=== PATIENT | female | born 1965 | race Caucasian/White ===

== ENCOUNTER 2019-10-25 13:00 | Outpatient (RCR) | payer BC, SELFPAY | END 2019-11-14 23:59 | disposition home or self-care (01) | LOC: ANHDMC 13:00 | PROVIDERS: PCP Family Medicine; Visit Provider Family Medicine | DX: E11.9 Type 2 diabetes mellitus without complications (principal); Z71.89 Other specified counseling | CPT/HCPCS: G0108 ==

== ENCOUNTER 2020-03-20 13:44 | Outpatient (CLI) | payer BC, SELFPAY ==
--- NOTE | ~2020-03-20 | XR_ITS ---
EXAMINATION: XR chest 2V 03/20/2020 14:12 INDICATION: Pneumonia. History of COPD. PROCEDURE: 2 view chest COMPARISON: Comparison to multiple prior studies sequentially, with oldest reviewed study dated 07/12. FINDINGS: There is chronic lingular atelectasis/scarring. No acute focal pneumonia, edema. The cardio mediastinal silhouette is within normal limits. There are no pleural effusions. There is no pneumot horax suspected. IMPRESSION: 1: NO ACUTE CARDIOPULMONARY DISEASE. Reviewed, dictated and finalized at location A.
== END 2020-03-20 13:45 | disposition home or self-care (01) ==
PROVIDERS: PCP Family Medicine; Visit Provider Family Medicine
DX: J18.9 Pneumonia, unspecified organism (principal); F17.200 Nicotine dependence, unspecified, uncomplicated; R93.89 Abnormal findings on diagnostic imaging of other specified body structures
CPT/HCPCS: 71046

== ENCOUNTER 2020-07-10 14:32 | Inpatient (IN) | payer BC, SELFPAY ==
[2020-07-10] VITALS (22 sets, daily range): BP systolic 115–138; BP diastolic 65–86; PULSE 87–107; RESP 15–25; TEMP 36.4–37.2; O2SAT 87–96; BMI 32.8
--- NOTE | ~2020-07-10 | CT_ITS ---
EXAMINATION: CTA chest PE protocol DATE: 07/10/2020 19:14 INDICATION: Shortness of breath and hypoxia. TECHNIQUE: Computed tomography (CT) pulmonary angiogram of the chest was performed with 100 mL Omnipa que-350 intravenous contrast. Additional 3D reconstructions utilizing coronal maximum intensity proje ction (MIP) were performed. Automated exposure control and iterative reconstruction technique were em ployed. The dose-length product was 341.50 mGy-cm. COMPARISON: 08/05/2019 FINDINGS: Excellent contrast opacification of the pulmonary arteries. There is mild streak artifact from dense contrast in the superior vena cava and right atrium. Mild scattered respiratory motion artifact which does not significantly limit evaluation. No pulmonary embolism. Mild discoid atelectasis in the ling liz and left upper lobe. There is some mosaic attenuation with subtle regions of air trapping suggest ever of small airway disease. No pneumonia, pulmonary edema, pleural effusion or pneumothorax. Diffuse mild bronchial wall thickening which could be related to bronchitis or reactive airway disease. Hear t size is normal. Atherosclerotic coronary artery calcific a cyst. No pericardial effusion. Thoracic aorta is normal in caliber with no dissection. No pathologically enlarged thoracic lymphadenopathy. V isualized upper abdomen is unremarkable. Mild thoracic spondylosis. IMPRESSION: 1. No pulmonary embolism. 2. Diffuse mild bronchial wall thickening and subtle regions of air trapping. Correlate clinically fo r possible asthma/reactive airway disease. Reviewed, dictated and finalized at location A. IMPRESSION: 1. No pulmonary embolism. 2. Diffuse mild bronchial wall thickening and subtle regions of air trapping. C orrelate clinically for possible asthma/reactive airway disease.
--- NOTE | ~2020-07-10 | XR_ITS ---
XR chest 2V DATE: 07/10/2020 15:02 INDICATION: Cough. Weakness. TECHNIQUE: PA and lateral views COMPARISON: 03/20/2020 2 view chest 08/09/2019 2 view chest 08/05/2019 CT pulmonary scan FINDINGS: Normal heart size. There is chronic lingular infiltrate, atelectasis and/or scarring, with resulting irregular shaggy le ft cardiac margin, not significantly changed since 08/09/2019. The lungs are moderately hyperinflated. No new pulmonary infiltrate or consolidation, pleural effusio n or pulmonary vascular congestion or pneumothorax is detected. IMPRESSION: Chronic lingular infiltrate, atelectasis and/or scarring Bilateral hyperinflation suggesting COPD Resolution of right basilar infiltrate or atelectasis; otherwise no significant change since 08/09/20 19 Reviewed, dictated and finalized at location B. IMPRESSION: Chronic lingular infiltrate, atelectasis and/or scarring Bilateral hyperinflation suggesting COPD Resolution of right basilar infiltrate or atelectasis; otherwise no significant change since 08/09/2019
--- NOTE | 2020-07-10 14:38 | ECG_ITS ---
Measurements Intervals [place] Rate: 93 P: 66 NM: 134 QRS: 78 QRSD: 86 T: 61 QT: 365 QTc: 455 Interpretive Statements SINUS RHYTHM POSSIBLE LEFT ATRIAL ENLARGEMENT DELAYED PRECORDIAL R/S TRANSITION BORDERLINE ECG Electronically Signed On 07-10-2020 15:50:20 CDT by Sebastian Whitaker D.O.
[2020-07-10 15:03] LABS: Basophils Absolute Auto 0.1 K/mm3 (0.0-0.1); Basophils Percent Auto 0.5 % (0.2-1.2); Eosinophils Absolute Auto 0.1 K/mm3 (0-0.3); Eosinophils Percent Auto 0.5 % (0-4.4); Hematocrit 49.8 % (37.0-47.0); Hemoglobin 16.3 g/dL (12.0-15.0); Immature Granulocyte Absolute 0.06 K/mm3 (0.00-0.031); Immature Granulocyte Percent A 0.4 % (0-0.5); Lymphocytes Absolute Auto 2.64 K/mm3 (0.9-3.2); Lymphocytes Percent Auto 15.9 % (18.3-44.2); Mean Corpuscular HGB Conc 32.7 g/dl (32-36); Mean Corpuscular Hemoglobin 28.6 pg (26-34); Mean Corpuscular Volume 87.5 fl (80-100); Mean Platelet Volume 8.8 fl (7.4-10.4); Monocytes Absolute Auto 1.5 K/mm3 (0.1-0.6); Monocytes Percent Auto 9.2 % (2.6-8.5); Neutrophils Absolute Auto 12.2 K/mm3 (1.3-6.7); Neutrophils Percent Auto 73.5 % (45.5-73.1); Platelet Count Result 340 k/mm3 (150-375); Red Blood Count 5.69 M/mm3 (4.2-5.4); Red Cell Distribution Width 14.3 % (11.5-14.5); White Blood Count 16.6 K/mm3 (4.5-10.0)
[2020-07-10 15:12] LABS: Prothrombin Time 12.6 Seconds (11.1-14.7)
[2020-07-10 15:13] LABS: Partial Thromboplastin Time 27.3 SECONDS (22.3-36.8)
[2020-07-10 15:15] LABS: Anion Gap 14 mmol/L (8-16); Blood Urea Nitrogen 15 mg/dL (7-17); Calcium 9.6 mg/dL (8.4-10.2); Carbon Dioxide 21 mmol/L (22-30); Chloride 104 mmol/L (98-107); Estimated CRCL calculation 81 ml/min; Estimated Glomerular Filt Rate > 60; Glucose 88 mg/dL (65-105); Potassium 4.2 mmol/L (3.4-5.0); Sodium 139 mmol/L (137-145)
[2020-07-10] MEDS: ASPIRIN 81 MG CHEWABLE TABLET 324 MG PO (15:21)
[2020-07-10 15:26] LABS: Troponin I < 0.012 ng/mL (0.000-0.034)
--- NOTE | 2020-07-10 16:06 | ED.SOB ---
HPI - SOB/Dyspnea General Chief Complaint: Shortness of Breath/Dyspnea <APRIL Ruggiero Last Filed: 07/10/20 20:54> Stated Complaint: SOB <APRIL Ruggiero Last Filed: 07/10/20 20:54> Time Seen by Provider: 07/10/20 15:34 <APRIL Ruggiero Last Filed: 07/10/20 20:54> Source: patient <APRIL Ruggiero Last Filed: 07/10/20 20:54> Mode of arrival: ambulatory <APRIL Ruggiero Last Filed: 07/10/20 20:54> Limitations: no limitations <APRIL Ruggiero Filed: 07/10/20 20:54> History of Present Illness HPI Narrative: This is a 55 year old female that presents to the ER for shortness of breath x 3 days. Reports sore throat, congestion and cough. Reports history of COPD and that she has become more short of breath. Reports chest pain with coughing. Reports she was treated by her PCP earlier this week for thrush. Denies fever. <APRIL Ruggiero Last Filed: 07/10/20 20:54> Related Data Home Medications: Home Medications Medication Instructions Recorded Confirmed aspirin [Adult Aspirin Regimen] 81 mg PO DAILY 08/09/19 07/08/20 atorvastatin 20 mg PO DAILY 08/09/19 07/08/20 <APRIL Ruggiero Last Filed: 07/10/20 20:54> Allergies/Adverse Reactions: Allergies Allergy/AdvReac Type Severity Reaction Status Date / Time hydrocodone Allergy Mild unknown Verified 09/20/19 13:44 exenatide [From Bydureon] Allergy Unknown Verified 09/20/19 13:44 poison sia extract Allergy Rash Verified 09/20/19 13:44 <APRIL Ruggiero Last Filed: 07/10/20 20:54> Review of Systems Review of Systems: Narrative: CONSTITUTIONAL: Denies fever ENT: Reports rhinorrhea, congestion, sore throat CARDIOVASCULAR: Reports chest pain RESPIRATORY: Reports cough and dyspnea. <APRIL Ruggiero Filed: 07/10/20 20:54> All systems reviewed & are unremarkable except as noted in HPI and below <Yamel Borja PA-C - Last Filed: 07/10/20 20:54> [facility] Past Medical History Medical History: Medical History (Updated 07/10/20 @ 20:49 by Deana Méndez DO) CAP (community acquired pneumonia) 08/09/2019 Cigarette smoker Diverticulosis DVT of popliteal vein Eczema of lower leg bilateral feet Gastroesophageal reflux Hematuria Irritable bowel syndrome with mixed bowel habits Migraine, unspecified, not intractable, without status migrainosus Persistent asthma with undetermined severity Type 2 diabetes mellitus treated with insulin <Yamel Borja PA-C - Last Filed: 07/10/20 20:54> Surgical History Surgical History: Surgical History (Updated 07/10/20 @ 20:27 by Deana Méndez DO) Congenital cataract resection Ganglion cyst of dorsum of left wrist History of endometrial ablation (~2005) Hx of tonsillectomy <Yamel Borja PA-C - Last Filed: 07/10/20 20:54> Family History Family History: Family History (Updated 07/10/20 @ 20:36 by Deana Méndez DO) Grandparent Diabetes mellitus Hyperlipidemia Mother , of malignant hyperthermia as a side effect of anesthesia Diabetes mellitus CHF (congestive heart failure) Peripheral vascular disease Chronic cutaneous venous stasis ulcer Sibling Diabetes mellitus sister Peripheral artery disease brother Father , premature coronary artery disease Acute myocardial infarction Malignant neoplasm of prostate Hyperlipidemia Heart disease Pulmonary embolism Cerebrovascular accident <Yamel Borja PA-C - Last Filed: 07/10/20 20:54> Social History Social History: Social History (Updated 07/10/20 @ 20:37 by Deana Méndez DO) Social History: Primary care physician: Dr. Claudette Figueroa Smoking packs per day: 1 Smoking cigarettes per day: 20.0 Years smoked: 41 Smoking pack-years: 41.00 Smoking status: Current every day smoker Alcohol intake: current Gender identity (if verbali
[2020-07-10] MEDS: ALBUTEROL SULFATE (*SP) AEROSOL 1 PUFF 4 PUFF INHALATION ×3 (16:15→18:16)
[2020-07-10] MEDS: methylPREDNISolone SOD SUCC 125 MG VIAL IV PUSH (16:20)
[2020-07-10 16:32] LABS: Alveolar/Arterial O2 Gradient 55.9 mmHg; Base Excess ABG -5.9 mEq/l (+/-2.0); Carboxyhemoglobin 2.1 % THb (0-2.0); Fractional Inspired Oxygen 21 %; HCO3 ABG 17.8 mEq/l (22.0-26.0); Methemoglobin ABG 0.4 %THb (0-1.5); Oxygen Saturation ABG 89.3 % (95.0-100.0); Oxyhemoglobin 85.4 % THb (90.0-100.0); PCO2 ABG 31.1 mmHg (35.0-45.0); PO2 ABG 56.6 mmHg (80.0-100.0); Reduced Hemoglobin 12.1 %THb (0-5.0); Total Hemoglobin 16.7 g/dL (12.0-18.0); pH ABG 7.376 (7.350-7.450)
[2020-07-10 16:34] LABS: Device ROOM AIR; Modified Allen's Test Pass; Site Drawn RIGHT RADIAL
[2020-07-10 17:59] LABS: Troponin I < 0.012 ng/mL (0.000-0.034)
--- NOTE | 2020-07-10 19:44 | PC.NURSE ---
called kelli to transfer patient back to [facility]. [facility] eta 2015
--- NOTE | 2020-07-10 20:22 | PM.IMHP ---
H&P: HPI History of Present Illness Date/Time: 07/10/20 20:22 Chief complaint: shortness of breath and cough Narrative: Sol Rosas is a 55 year old female With a past medical history of tobacco abuse and asthma presented to the ER with shortness of breath and cough for 1 day. She reports that she was diagnosed with thrush about 3 days ago. She was having sore throat and white plaquing in her mouth. She reports that she still has a sore throat despite taking her clotrimazole tablets. She has had persistent decreased oral intake. She has been eating 1 meal a day. She did have 1 episode of loose stool earlier today. She denies being on any antibiotic therapy. She has a longstanding history of asthma and continues to smoke 1.5 packs of cigarettes per day. She reports that usually about this time a year she will have more allergy symptoms in in the up getting a bronchitis or pneumonia. Last year she was hospitalized for pneumonia. So when she noticed increased rhinorrhea and postnasal drip she began using her fluconazole inhaler again . She had also noticed increased wheezing over the last several days. For 5 days after starting her fluconazole inhaler is when she developed the thrush. The patient reported that she just has not been feeling very well and has been staying in bed. She has not been having any fevers or chills. She works at a [employer] where it several of her colleagues at had [employer] several months ago but no one has tested positive recently. She lives at home with her and her 3 grand children and 2 daughters, over frequently. Her 1 daughter is ripn-py-ohgo mother who home schools her daughter. Her other daughter works as a infusion pharmacist. As far she knows her daughter's in grand children have not been ill. The patient denies any loss of sense of taste or smell. She had been having some chest discomfort associated with coughing. She had 2 sets of cardiac enzymes in the ER which were negative. for cough is productive of clear to white sputum. Review of Systems Review of Systems: Narrative: 12 systems were reviewed with pertinent positives and negatives per HPI. Except as documented in the HPI, all other systems were reviewed and are negative. [facility] Past Medical History Medical History (Updated 07/10/20 @ 20:59 by Deana Méndez DO) CAP (community acquired pneumonia) 08/09/2019 Cigarette smoker Diverticulosis DVT of popliteal vein Eczema of lower leg bilateral feet Gastroesophageal reflux Hematuria Irritable bowel syndrome with mixed bowel habits Migraine, unspecified, not intractable, without status migrainosus Persistent asthma with undetermined severity Type 2 diabetes mellitus treated with insulin Hemoglobin A1c February 2020 6.8 Surgical History Surgical History (Updated 07/10/20 @ 20:27 by Deana Méndez DO) Congenital cataract resection Ganglion cyst of dorsum of left wrist History of endometrial ablation (~2005) Hx of tonsillectomy Family History Family History (Updated 07/10/20 @ 20:36 by Deana Méndez DO) Grandparent Diabetes mellitus Hyperlipidemia Mother , of malignant hyperthermia as a side effect of anesthesia Diabetes mellitus CHF (congestive heart failure) Peripheral vascular disease Chronic cutaneous venous stasis ulcer Sibling Diabetes mellitus sister Peripheral artery disease brother Father , premature coronary artery disease Acute myocardial infarction Malignant neoplasm of prostate Hyperlipidemia Heart disease Pulmonary embolism Cerebrovascular accident Social History Social History (Updated 07/10/20 @ 23:06 by Deana Méndez DO) Social History: Primary care physician: Dr. Claudette Figueroa Smoking packs per day: 1.5 Smoking cigarettes per day: 30.0 Years smoked: 41 Smoking pack-years: 61.50 Smoking status: Current every day smoker Tobacco type: cigarettes Second hand tobacco sm
[2020-07-10 21:35] LABS: Troponin I < 0.012 ng/mL (0.000-0.034)
--- NOTE | 2020-07-10 21:43 | ADMGEN ---
This patient, Sol Rosas, was admitted to [facility] Surg Room 328-01. Patient/family oriented to hospital policies and general routines including ID bracelet, bed and alarms, visiting hours, pain management, procedures, bathroom and other care routines, personal items, smoking policy, room service/diet, and visiting hours. Valuables list has been completed. Information on how to activate the Rapid Response Team has been discussed. Patient/Family are encouraged to report perceived risks to care and to ask questions if they do not understand what they are told or what they should do.
[2020-07-10] MEDS: methylPREDNISolone SOD SUCC 125 MG VIAL 80 MG IV PUSH (22:52)
[2020-07-10 23:52] LABS: Glucose Point of Care 343 (65-105)
[2020-07-11] VITALS (13 sets, daily range): BP systolic 108–136; BP diastolic 53–82; PULSE 80–121; RESP 18–20; TEMP 36.4–37.2; O2SAT 91–95
[2020-07-11] MEDS: INSULIN ASPART (*BKC) 100 UNITS/ML SUB-Q ×2 (00:31→18:47)
[2020-07-11] MEDS: SODIUM CHLORIDE 0.9% IV 1,000 ML 100 ML IV CONT ×2 (00:31→10:13)
[2020-07-11] MEDS: methylPREDNISolone SOD SUCC 125 MG VIAL 80 MG IV PUSH (06:11)
[2020-07-11 07:45] LABS: Hematocrit 50.8 % (37.0-47.0); Hemoglobin 16.2 g/dL (12.0-15.0); Mean Corpuscular HGB Conc 31.9 g/dl (32-36); Mean Corpuscular Hemoglobin 28.3 pg (26-34); Mean Corpuscular Volume 88.8 fl (80-100); Mean Platelet Volume 9.3 fl (7.4-10.4); Platelet Count Result 338 k/mm3 (150-375); Red Blood Count 5.72 M/mm3 (4.2-5.4); Red Cell Distribution Width 14.3 % (11.5-14.5); White Blood Count 11.2 K/mm3 (4.5-10.0)
[2020-07-11 08:23] LABS: Anion Gap 13 mmol/L (8-16); Blood Urea Nitrogen 20 mg/dL (7-17); Calcium 9.3 mg/dL (8.4-10.2); Carbon Dioxide 23 mmol/L (22-30); Chloride 104 mmol/L (98-107); Estimated CRCL calculation 82 ml/min; Estimated Glomerular Filt Rate > 60; Glucose 136 mg/dL (65-105); Potassium 4.7 mmol/L (3.4-5.0); Sodium 140 mmol/L (137-145)
[2020-07-11] MEDS: ALBUTEROL SULFATE (*SP) AEROSOL 1 PUFF 6 PUFF INHALATION ×3 (08:35→15:29)
[2020-07-11 08:56] LABS: Glucose Point of Care 157 (65-105)
[2020-07-11] MEDS: ASPIRIN 81 MG ENTERIC TABLET PO (10:08)
[2020-07-11] MEDS: metFORMIN HCL 500 MG TABLET 1000 MG PO ×2 (10:08→16:09)
[2020-07-11] MEDS: lisinopriL 2.5 MG TABLET PO (10:09)
[2020-07-11] MEDS: ENOXAPARIN 40 MG/0.4 ML SYRINGE SUB-Q (10:09)
[2020-07-11] MEDS: ATORVASTATIN 20 MG TABLET PO (10:09)
[2020-07-11] MEDS: INSULIN GLARGINE (*BKC) 100 UNITS/ML 10 UNITS SUB-Q (10:09)
[2020-07-11] MEDS: NYSTATIN 100,000 UNITS/ML SUSP 5 ML ORAL.SUSP PO ×4 (10:10→22:13)
[2020-07-11 12:19] LABS: Glucose Point of Care 199 (65-105)
[2020-07-11 12:19] LABS: SARS-CoV-2 RNA PCR Negative
--- NOTE | 2020-07-11 14:53 | PM.IMPN ---
Progress Note: A&P Assessment and Plan (1) Exacerbation of asthma: Qualifiers: Asthma severity: unspecified severity Asthma persistence: unspecified Qualified Code(s): J45.901 - Unspecified asthma with (acute) exacerbation Code(s): J45.901 - Unspecified asthma with (acute) exacerbation Status: Acute Assessment and Plan: With possible undiagnosed component of COPD based on imaging this stay. She feels better, but still significant wheezing on exam. COVID testing negative. Continue with scheduled albuterol and spiriva Will add scheduled neb treatments now that COVID testing is negative We discussed her following up with her PCP for possible PFT for further evaluation Will lower IV solu medrol to 60mg Q8 hr for now; consider further weaning in frequency tomorrow. Wean O2 as tolerated Monitor (2) Acute respiratory failure with hypoxia: Code(s): J96.01 - Acute respiratory failure with hypoxia Status: Acute Assessment and Plan: Likely secondary to above. on 5 L HFNC currently; satting mid s currently. Please see above a/p (3) Oral candidiasis: Code(s): B37.0 - Candidal stomatitis Status: Acute Assessment and Plan: Will do nystatin swish and swallow during stay Continue home treatment after discharge (4) Diabetes mellitus: Qualifiers: Diabetes mellitus type: type 2 Diabetes mellitus mcc insulin use: with long distance operator use Diabetes mellitus complication status: without complication Qualified Code(s): E11.9 - Type 2 diabetes mellitus without complications; Z79.4 - terminal block assembler (current) use of insulin Code(s): E11.9 - Type 2 diabetes mellitus without complications Status: Acute Assessment and Plan: BGL 100s today. Last A1c 6.8 in 02/2020 Accuchecks ACHS, hypoglycemia protocol, correctional insulin, diabetic diet Continue home medications if formulary (5) Hypertension: Code(s): I10 - Essential (primary) hypertension Status: Acute Assessment and Plan: No HTN listed on medical history but takes lisinopril at home. BP reasonable during stay continue home lisinopril Monitor (6) Mixed hyperlipidemia: Code(s): E78.2 - Mixed hyperlipidemia Status: Acute Assessment and Plan: Check LFTs continue home statin Subjective Date/time seen: 07/11/20 14:53 Interval history: Patient is a 55 yo F with history of asthma, tobacco abuse, and DMII who is seen in follow up for asthma exacerbation with possible COPD component. Patient states she feels better today, then when she first came in. Her SOB particularly with exertion has improved, but still significant. She states her family members have said she sounds a lot better as well. Has some chest discomfort with coughs. Produces white sputum with cough. Slight nausea without vomiting overnight which resolved spontaneously. No other complaints at the moment. Tolerating PO. Denies subjective f/c/s, cp/palpitations, current n/v/d/c, abd pain, changes in BMs, dysuria, hematuria, cloudy urine, calf pain/swelling. Review of Systems Review of Systems: All systems reviewed & are unremarkable except as noted in HPI and below Exam Narrative: Exam Narrative: General: Patient resting supine in bed in no acute distress. on 5L HFNC satting at 94% HEENT: Normocephalic, EOMI, oral mucosa moist. Cardiovascular: Rate and rhythm are regular. No notable murmur, rub, or gallop. Respiratory: Significant diffuse expiratory wheezing in all lung haney with occasional scattered inspiratory wheeze. Speaks in somewhat full sentences but takes occasional time to a breath. Non-labored breathing. Abdomen: Soft, non-tender, non-distended, hypoac
[2020-07-11] MEDS: methylPREDNISolone SOD SUCC 125 MG VIAL 60 MG IV PUSH ×2 (16:09→22:13)
[2020-07-11 18:46] LABS: Glucose Point of Care 241 (65-105)
[2020-07-11] MEDS: ALBUTEROL SULFATE NEB 2.5 MG/0.5 ML INH INHALATION (20:04)
[2020-07-11] MEDS: IPRATROPIUM BR 0.02% INH SOLN 0.5 MG/2.5 ML VIAL INHALATION (20:04)
[2020-07-12] VITALS (18 sets, daily range): BP systolic 99–113; BP diastolic 50–56; PULSE 73–100; RESP 18–20; TEMP 36.6; O2SAT 90–94
[2020-07-12 01:21] LABS: Glucose Point of Care 250 (65-105)
[2020-07-12] MEDS: ALBUTEROL SULFATE NEB 2.5 MG/0.5 ML INH INHALATION ×4 (02:56→19:37)
[2020-07-12] MEDS: IPRATROPIUM BR 0.02% INH SOLN 0.5 MG/2.5 ML VIAL INHALATION (02:56)
[2020-07-12] MEDS: methylPREDNISolone SOD SUCC 125 MG VIAL 60 MG IV PUSH ×2 (05:46→17:47)
[2020-07-12 06:33] LABS: Hematocrit 44.6 % (37.0-47.0); Hemoglobin 14.5 g/dL (12.0-15.0); Mean Corpuscular HGB Conc 32.5 g/dl (32-36); Mean Corpuscular Hemoglobin 28.3 pg (26-34); Mean Corpuscular Volume 87.1 fl (80-100); Platelet Count Result 366 k/mm3 (150-375); Red Blood Count 5.12 M/mm3 (4.2-5.4); Red Cell Distribution Width 14.1 % (11.5-14.5)
[2020-07-12 06:55] LABS: Alanine Aminotransferase 16 U/L (4-35); Albumin Level 4.2 g/dL (3.5-5.1); Alkaline Phosphatase 99 U/L (38-126); Anion Gap 10 mmol/L (8-16); Aspartate Amino Transferase 20 U/L (14-36); Bilirubin,Total 0.3 mg/dL (0.2-1.3); Blood Urea Nitrogen 24 mg/dL (7-17); Calcium 9.5 mg/dL (8.4-10.2); Carbon Dioxide 23 mmol/L (22-30); Chloride 105 mmol/L (98-107); Estimated CRCL calculation 73 ml/min; Estimated Glomerular Filt Rate > 60; Glucose 203 mg/dL (65-105); Magnesium 2.4 mg/dL (1.6-2.3); Potassium 4.8 mmol/L (3.4-5.0); Sodium 138 mmol/L (137-145)
[2020-07-12 08:54] LABS: Glucose Point of Care 159 (65-105)
[2020-07-12] MEDS: metFORMIN HCL 500 MG TABLET 1000 MG PO ×2 (08:54→17:49)
[2020-07-12] MEDS: ASPIRIN 81 MG ENTERIC TABLET PO (08:54)
[2020-07-12] MEDS: lisinopriL 2.5 MG TABLET PO (08:55)
[2020-07-12] MEDS: ENOXAPARIN 40 MG/0.4 ML SYRINGE SUB-Q (08:56)
[2020-07-12] MEDS: ATORVASTATIN 20 MG TABLET PO (08:59)
[2020-07-12] MEDS: NYSTATIN 100,000 UNITS/ML SUSP 5 ML ORAL.SUSP PO ×4 (09:00→20:56)
--- NOTE | 2020-07-12 09:09 | PM.IMPN ---
Progress Note: A&P Assessment and Plan (1) Exacerbation of asthma: Qualifiers: Asthma severity: unspecified severity Asthma persistence: unspecified Qualified Code(s): J45.901 - Unspecified asthma with (acute) exacerbation Code(s): J45.901 - Unspecified asthma with (acute) exacerbation Status: Acute Assessment and Plan: With possible undiagnosed component of COPD based on imaging this stay. Clinically has improved, but still wheezing on exam. Afebrile, soft BP but otherwise VSS. COVID testing negative. WBC increased to 22k overnight, but suspect this may be due to IV steroid use; infection seems to be less likely. PNA would be possible source of infection if patient becomes febrile/persistent leukocytosis; other sources including skin infection and UTI seem less likely given she is asymptomatic. Down to 3L O2 NC Continue with scheduled albuterol and spiriva Continue scheduled neb treatments Will lower IV solu medrol to 60mg Q12 hr for now; consider further weaning in frequency tomorrow. Wean O2 as tolerated Monitor; consider abx for possible developing PNA if WBC continues to be elevated. Also will consider UA for other sources of infection, although she is asymptomatic During stay, we discussed her following up with her PCP for possible PFT for further evaluation (2) Acute respiratory failure with hypoxia: Code(s): J96.01 - Acute respiratory failure with hypoxia Status: Acute Assessment and Plan: Likely secondary to above. on 3 L NC currently; satting mid 90s currently. Please see above a/p (3) Oral candidiasis: Code(s): B37.0 - Candidal stomatitis Status: Acute Assessment and Plan: Will do nystatin swish and swallow during stay Continue home treatment after discharge (4) Diabetes mellitus: Qualifiers: Diabetes mellitus type: type 2 Diabetes mellitus long distance operator insulin use: with long distance operator use Diabetes mellitus complication status: without complication Qualified Code(s): E11.9 - Type 2 diabetes mellitus without complications; Z79.4 - [facility] (current) use of insulin Code(s): E11.9 - Type 2 diabetes mellitus without complications Status: Acute Assessment and Plan: BGL 150-low 200s today. Last A1c 6.8 in 02/2020 Accuchecks ACHS, hypoglycemia protocol, correctional insulin, diabetic diet Continue home medications if formulary (5) Mixed hyperlipidemia: Code(s): E78.2 - Mixed hyperlipidemia Status: Acute Assessment and Plan: Check LFTs continue home statin (6) Migraine, unspecified, not intractable, without status migrainosus: Code(s): G43.909 - Migraine, unspecified, not intractable, without status migrainosus Status: Acute Assessment and Plan: No acute issues. No HTN listed on medical history but takes lisinopril at home. She states she takes this to protect my kidneys , which is what as listed in her EMR as well. Suspect this is taken for ppx for migraine headaches. BP soft his morning Hold home lisinopril this morning; resume when appropriate Monitor Subjective Date/time seen: 07/12/20 09:09 Interval history: Patient is a 55 yo F with history of asthma, tobacco abuse, and DMII who is seen in follow up for asthma exacerbation with possible COPD component. Patient states she feels much better today. States she was coughing white sputum up last night, but has since felt much better. SOB and AVILA has improved. Still has some chest discomfort with coughs but has improved as well. No other complaints at the moment. Tolerating PO. Denies subjective f/c/s, cp/palpitations, current n/v/d/c, abd pain, changes in BMs, dysuria, hematuria, cloudy urine, calf pain/swell
[2020-07-12] MEDS: INSULIN GLARGINE (*BKC) 100 UNITS/ML 10 UNITS SUB-Q (11:17)
[2020-07-12] MEDS: INSULIN ASPART (*BKC) 100 UNITS/ML SUB-Q (11:37)
[2020-07-12 11:49] LABS: Glucose Point of Care 281 (65-105)
[2020-07-12] MEDS: NICOTINE (*PBKC) 21 MG PATCH 1 PATCH TRANSDERM (15:37)
[2020-07-12 17:58] LABS: Glucose Point of Care 188 (65-105)
[2020-07-12 20:03] LABS: Glucose Point of Care 239 (65-105)
[2020-07-12 20:59] LABS: Glucose Point of Care 227 (65-105)
[2020-07-13] VITALS (16 sets, daily range): BP systolic 115–137; BP diastolic 61–73; PULSE 69–105; RESP 16–18; TEMP 36.6–36.7; O2SAT 90–94
[2020-07-13] MEDS: ALBUTEROL SULFATE NEB 2.5 MG/0.5 ML INH INHALATION ×4 (01:24→20:24)
[2020-07-13 06:16] LABS: Basophils Percent Auto 0.2 % (0.2-1.2); Hematocrit 43.4 % (37.0-47.0); Hemoglobin 14.3 g/dL (12.0-15.0); Immature Granulocyte Absolute 0.21 K/mm3 (0.00-0.031); Immature Granulocyte Percent A 1.1 % (0-0.5); Lymphocytes Absolute Auto 3.59 K/mm3 (0.9-3.2); Lymphocytes Percent Auto 18.1 % (18.3-44.2); Mean Corpuscular HGB Conc 32.9 g/dl (32-36); Mean Corpuscular Volume 84.9 fl (80-100); Monocytes Absolute Auto 1.4 K/mm3 (0.1-0.6); Monocytes Percent Auto 7.2 % (2.6-8.5); Neutrophils Absolute Auto 14.6 K/mm3 (1.3-6.7); Neutrophils Percent Auto 73.4 % (45.5-73.1); Platelet Count Result 389 k/mm3 (150-375); Red Blood Count 5.11 M/mm3 (4.2-5.4); Red Cell Distribution Width 13.9 % (11.5-14.5); White Blood Count 19.9 K/mm3 (4.5-10.0)
[2020-07-13 06:19] LABS: Anion Gap 9 mmol/L (8-16); Blood Urea Nitrogen 23 mg/dL (7-17); Calcium 9.2 mg/dL (8.4-10.2); Carbon Dioxide 26 mmol/L (22-30); Chloride 105 mmol/L (98-107); Estimated CRCL calculation 82 ml/min; Estimated Glomerular Filt Rate > 60; Glucose 150 mg/dL (65-105); Magnesium 2.3 mg/dL (1.6-2.3); Potassium 4.1 mmol/L (3.4-5.0); Sodium 140 mmol/L (137-145)
[2020-07-13] MEDS: methylPREDNISolone SOD SUCC 125 MG VIAL 60 MG IV PUSH (08:28)
[2020-07-13] MEDS: metFORMIN HCL 500 MG TABLET 1000 MG PO ×2 (08:30→17:15)
[2020-07-13] MEDS: ASPIRIN 81 MG ENTERIC TABLET PO (08:30)
[2020-07-13] MEDS: ATORVASTATIN 20 MG TABLET PO (08:31)
[2020-07-13] MEDS: NYSTATIN 100,000 UNITS/ML SUSP 5 ML ORAL.SUSP PO ×4 (08:31→20:36)
[2020-07-13] MEDS: ENOXAPARIN 40 MG/0.4 ML SYRINGE SUB-Q (08:31)
[2020-07-13] MEDS: INSULIN GLARGINE (*BKC) 100 UNITS/ML 10 UNITS SUB-Q (08:39)
[2020-07-13 08:50] LABS: Glucose Point of Care 107 (65-105)
--- NOTE | 2020-07-13 09:35 | PM.IMPN ---
Progress Note: A&P Assessment and Plan (1) Exacerbation of asthma: Qualifiers: Asthma severity: unspecified severity Asthma persistence: unspecified Qualified Code(s): J45.901 - Unspecified asthma with (acute) exacerbation Code(s): J45.901 - Unspecified asthma with (acute) exacerbation Status: Acute Assessment and Plan: With possible undiagnosed component of COPD based on imaging this stay. Clinically has improved, but still wheezing on exam. Afebrile, soft BP but otherwise VSS. COVID testing negative. WBC decreased to 19.9k overnight; suspect this may be due to IV steroid use; infection seems to be less likely. PNA would be possible source of infection if patient becomes febrile/persistent leukocytosis; other sources including skin infection and UTI seem less likely given she is asymptomatic. Down to RA today Continue with scheduled albuterol and spiriva Continue scheduled neb treatments Will lower frequency of IV solu medrol to 60mg Q24 hr; plan to discharge on steroid taper Wean O2 as tolerated Monitor; consider abx for possible developing PNA if WBC continues to be elevated. Also will consider UA for other sources of infection, although she is asymptomatic During stay, we discussed her following up with her PCP for possible PFT for further evaluation (2) Acute respiratory failure with hypoxia: Code(s): J96.01 - Acute respiratory failure with hypoxia Status: Acute Assessment and Plan: Likely secondary to above. on RA; satting mid currently. Please see above a/p (3) Oral candidiasis: Code(s): B37.0 - Candidal stomatitis Status: Acute Assessment and Plan: Will continue nystatin swish and swallow during stay Continue home treatment after discharge (4) Diabetes mellitus: Qualifiers: Diabetes mellitus type: type 2 Diabetes mellitus buttermaker helper insulin use: with longterm use Diabetes mellitus complication status: without complication Qualified Code(s): E11.9 - Type 2 diabetes mellitus without complications; Z79.4 - intermediate designer (current) use of insulin Code(s): E11.9 - Type 2 diabetes mellitus without complications Status: Acute Assessment and Plan: BGL 100-150s today. Last A1c 6.8 in 02/2020 Accuchecks ACHS, hypoglycemia protocol, correctional insulin, diabetic diet Continue home medications if formulary (5) Mixed hyperlipidemia: Code(s): E78.2 - Mixed hyperlipidemia Status: Acute Assessment and Plan: LFTs WNL continue home statin (6) Migraine, unspecified, not intractable, without status migrainosus: Code(s): G43.909 - Migraine, unspecified, not intractable, without status migrainosus Status: Acute Assessment and Plan: No acute issues. No HTN listed on medical history but takes lisinopril at home. She states she takes this to protect my kidneys , which is what as listed in her EMR as well. Suspect this is taken for ppx for migraine headaches. BP reasonable this morning Continue lisinopril Monitor Subjective Date/time seen: 07/13/20 09:35 Interval history: Patient is a 55 yo F with history of asthma, tobacco abuse, and DMII who is seen in follow up for asthma exacerbation with possible COPD component. Patient states she feels better again today; was weaned down to RA by herself last night and had adequate oxygen saturations and thus was kept on RA. SOB improving as well as AVILA. Still has productive nonbloody sputum. Notes streaks of blood when blowing her nose. No other complaints at the moment. Tolerating PO. Denies subjective f/c/s, cp/palpitations, current n/v/d/c, abd pain, changes in BMs, dysuria, hematuria, cloudy urine, calf pain/swelling. Rev
[2020-07-13 12:31] LABS: Glucose Point of Care 156 (65-105)
[2020-07-13 17:24] LABS: Glucose Point of Care 200 (65-105)
[2020-07-13 22:00] LABS: Glucose Point of Care 163 (65-105)
[2020-07-14 02:07] VITALS: PULSE 83; RESP 18
[2020-07-14] MEDS: ALBUTEROL SULFATE NEB 2.5 MG/0.5 ML INH INHALATION ×2 (02:07→08:55)
[2020-07-14 02:13] VITALS: PULSE 79; RESP 18
[2020-07-14 06:00] VITALS: BP 138/82; PULSE 105; RESP 20; TEMP 36.7; O2SAT 92
[2020-07-14 06:14] LABS: Basophils Absolute Auto 0.1 K/mm3 (0.0-0.1); Basophils Percent Auto 0.3 % (0.2-1.2); Eosinophils Percent Auto 0.2 % (0-4.4); Hematocrit 42.3 % (37.0-47.0); Hemoglobin 13.7 g/dL (12.0-15.0); Immature Granulocyte Absolute 0.18 K/mm3 (0.00-0.031); Lymphocytes Absolute Auto 6.27 K/mm3 (0.9-3.2); Lymphocytes Percent Auto 35.6 % (18.3-44.2); Mean Corpuscular HGB Conc 32.4 g/dl (32-36); Mean Corpuscular Hemoglobin 27.6 pg (26-34); Mean Corpuscular Volume 85.1 fl (80-100); Mean Platelet Volume 8.8 fl (7.4-10.4); Monocytes Absolute Auto 1.7 K/mm3 (0.1-0.6); Monocytes Percent Auto 9.5 % (2.6-8.5); Neutrophils Absolute Auto 9.4 K/mm3 (1.3-6.7); Neutrophils Percent Auto 53.4 % (45.5-73.1); Platelet Count Result 346 k/mm3 (150-375); Red Blood Count 4.97 M/mm3 (4.2-5.4); Red Cell Distribution Width 13.7 % (11.5-14.5); White Blood Count 17.6 K/mm3 (4.5-10.0)
[2020-07-14 06:38] LABS: Atypical Lymphocytes Present
[2020-07-14 06:41] LABS: Platelet Estimate Adequate (Adequate)
--- NOTE | 2020-07-14 08:18 | PM.DS ---
DS: Admitting Diagnosis Admitting Diagnosis Admitting Diagnosis: shortness of breath and cough DS: Discharge Diagnosis Discharge Diagnosis (1) Exacerbation of asthma: Qualifiers: Asthma persistence: unspecified Asthma severity: unspecified severity Qualified Code(s): J45.901 - Unspecified asthma with (acute) exacerbation Code(s): J45.901 - Unspecified asthma with (acute) exacerbation Status: Acute Assessment and Plan: With possible undiagnosed component of COPD based on imaging this stay. Clinically has improved; slight scattered wheezing on exam. Afebrile, VSS. COVID testing negative. WBC decreased to 17.6k overnight; suspect leukocytosis likely due to IV steroid use; infection seems to be less likely. PNA would be possible source of infection if patient becomes febrile/persistent leukocytosis; other sources including skin infection and UTI seem less likely given she is asymptomatic. Still on RA today Continue home medications Discharge on prednisone taper F/u with PCP in 1-2 weeks CBC on 07/17 to monitor WBC During stay, we discussed her following up with her PCP for possible PFT for further evaluation; she is to discuss with PCP (2) Acute respiratory failure with hypoxia: Code(s): J96.01 - Acute respiratory failure with hypoxia Status: Acute Assessment and Plan: Likely secondary to above. on RA; satting mid most recently. Please see above a/p (3) Oral candidiasis: Code(s): B37.0 - Candidal stomatitis Status: Acute Assessment and Plan: nystatin swish and swallow during stay Continue home treatment after discharge (4) Diabetes mellitus: Qualifiers: Diabetes mellitus complication status: without complication Diabetes mellitus termite exterminator helper insulin use: with termite exterminator helper use Diabetes mellitus type: type 2 Qualified Code(s): E11.9 - Type 2 diabetes mellitus without complications; Z79.4 - buttermaker helper (current) use of insulin Code(s): E11.9 - Type 2 diabetes mellitus without complications Status: Acute Assessment and Plan: BGL 100s today. Last A1c 6.8 in 02/2020 Accuchecks ACHS, hypoglycemia protocol, correctional insulin, diabetic diet during stay Continue home medications at discharge (5) Mixed hyperlipidemia: Code(s): E78.2 - Mixed hyperlipidemia Status: Acute Assessment and Plan: LFTs WNL continue home statin (6) Migraine, unspecified, not intractable, without status migrainosus: Code(s): G43.909 - Migraine, unspecified, not intractable, without status migrainosus Status: Acute Assessment and Plan: No acute issues. No HTN listed on medical history but takes lisinopril at home. She states she takes this to protect my kidneys , which is what as listed in her EMR as well. Possibly taking for ppx for migraine headaches vs protection kidney injury in setting of DMII. BP reasonable this morning Continue lisinopril F/u with PCP DS: Summary Hospital Course Reason for hospitalization: Asthma exacerbation with possible COPD component Hospital Course: Patient is a 55 yo F with history of tobacco abuse and asthma who presented to the ER from home on 07/10 with shortness of breath and cough for 1 day. While in the ED, patient was found to be hypoxic, requiring oxygen. CTA of the chest scan showed no PE but showed signs of diffuse mild bronchial wall thickening and subtle regions of air trapping. Patient was placed on IV steroids in the ED for treatment of possible asthma exacerbation. COVID testing was performed in the ED given her respiratory symptoms. Patient admitted under this setting. Please see H&P for further details. Presenting VS: Temp Pulse Resp BP Pulse Ox 9
[2020-07-14] MEDS: ENOXAPARIN 40 MG/0.4 ML SYRINGE SUB-Q (08:30)
[2020-07-14] MEDS: ASPIRIN 81 MG ENTERIC TABLET PO (08:34)
[2020-07-14] MEDS: lisinopriL 2.5 MG TABLET PO (08:34)
[2020-07-14] MEDS: NYSTATIN 100,000 UNITS/ML SUSP 5 ML ORAL.SUSP PO (08:34)
[2020-07-14] MEDS: methylPREDNISolone SOD SUCC 125 MG VIAL 60 MG IV PUSH (08:35)
[2020-07-14] MEDS: NICOTINE (*PBKC) 21 MG PATCH 1 PATCH TRANSDERM (08:35)
[2020-07-14] MEDS: ATORVASTATIN 20 MG TABLET PO (08:35)
[2020-07-14] MEDS: metFORMIN HCL 500 MG TABLET 1000 MG PO (08:35)
[2020-07-14 08:57] VITALS: PULSE 76; RESP 18; O2SAT 93
[2020-07-14 09:10] VITALS: PULSE 68; RESP 18
[2020-07-14 09:59] LABS: Glucose Point of Care 85 (65-105)
== END 2020-07-14 11:45 | disposition home or self-care (01) | DRG 202 ==
LOC: ANHED 20:43 → ANH3MEDSUR 20:45
PROVIDERS: Emergency Medicine; Physician Assistant; Admitting Provider Internal Medicine; Emergency Provider Emergency Medicine; PCP Family Medicine; Visit Provider Family Medicine
DX: J45.901 Unspecified asthma with (acute) exacerbation (principal); J96.01 Acute respiratory failure with hypoxia; B37.0 Candidal stomatitis; E11.9 Type 2 diabetes mellitus without complications; Z20.828 Contact with and (suspected) exposure to other viral communicable diseases; J44.9 Chronic obstructive pulmonary disease, unspecified; F17.210 Nicotine dependence, cigarettes, uncomplicated; E78.2 Mixed hyperlipidemia; K21.9 Gastro-esophageal reflux disease without esophagitis; G43.909 Migraine, unspecified, not intractable, without status migrainosus; Z23 Encounter for immunization; Z79.4 Long term (current) use of insulin; Z79.82 Long term (current) use of aspirin; Z86.718 Personal history of other venous thrombosis and embolism; Z87.720 Personal history of (corrected) congenital malformations of eye
CPT/HCPCS: 36415; 36600; 71046; 71275; 80048; 80053; 82375; 82805; 83050; 83735; 84484; 85025; 85027; 85610; 85730; 87635; 90471; 90653; 93005; 94640; 96361; 96374; 96376; 99285; A9270; C9803; G0008; G0378; J1650; J1815; J2930; J7030; Q9967; U0003

== ENCOUNTER 2020-07-17 07:36 | Outpatient (CLI) | payer BC, SELFPAY ==
[2020-07-17 08:45] LABS: Basophils Absolute Auto 0.1 K/mm3 (0.0-0.1); Basophils Percent Auto 0.4 % (0.2-1.2); Eosinophils Absolute Auto 0.1 K/mm3 (0-0.3); Eosinophils Percent Auto 0.4 % (0-4.4); Hematocrit 46.7 % (37.0-47.0); Hemoglobin 15.4 g/dL (12.0-15.0); Immature Granulocyte Absolute 0.48 K/mm3 (0.00-0.031); Immature Granulocyte Percent A 2.1 % (0-0.5); Lymphocytes Absolute Auto 7.21 K/mm3 (0.9-3.2); Lymphocytes Percent Auto 32.2 % (18.3-44.2); Mean Corpuscular Hemoglobin 28.1 pg (26-34); Mean Corpuscular Volume 85.1 fl (80-100); Mean Platelet Volume 8.9 fl (7.4-10.4); Monocytes Absolute Auto 1.7 K/mm3 (0.1-0.6); Monocytes Percent Auto 7.7 % (2.6-8.5); Neutrophils Absolute Auto 12.8 K/mm3 (1.3-6.7); Neutrophils Percent Auto 57.2 % (45.5-73.1); Platelet Count Result 469 k/mm3 (150-375); Red Blood Count 5.49 M/mm3 (4.2-5.4); Red Cell Distribution Width 13.9 % (11.5-14.5); White Blood Count 22.4 K/mm3 (4.5-10.0)
[2020-07-17 09:30] LABS: Atypical Lymphocytes Present; Burr Cells 1+ (NORMAL); Platelet Estimate Adequate (Adequate)
== END 2020-07-17 07:37 | disposition home or self-care (01) ==
LOC: ANHLAB 07:38
PROVIDERS: PCP Family Medicine; Visit Provider Physician Assistant
DX: D72.829 Elevated white blood cell count, unspecified (principal); J45.901 Unspecified asthma with (acute) exacerbation
CPT/HCPCS: 36415; 85025

== ENCOUNTER 2020-09-17 09:31 | Outpatient (CLI) | payer BC, SELFPAY ==
--- NOTE | 2020-09-26 11:59 | WPDPFTINT ---
PFT Interpretation PFT Interpretation: This PFT met all criteria for ATS standards and reproducibility FEV/FVC post bronchodilator 59% FEV1 69% or 1.62 liters FVC 87% or 2.77 liters TLC 107% RV 150% RV/TLC 51% DLCO 72% when adjusted for alveolar volume but not adjusted for hemoglobin Flow volume loops showed significant expiratory coving Impression: Moderate airflow obstruction with air trapping and mildly decreased diffusion capacity. This pattern is suggestive of COPD. Clinical correlation is advised.
== END 2020-09-17 09:32 | disposition home or self-care (01) ==
PROVIDERS: PCP Family Medicine; Visit Provider Family Medicine
DX: J96.01 Acute respiratory failure with hypoxia (principal); J45.901 Unspecified asthma with (acute) exacerbation
CPT/HCPCS: 94060; 94726; 94729

== ENCOUNTER 2023-10-13 09:27 | Outpatient (CLI) | payer BC, SELFPAY ==
--- NOTE | ~2023-10-13 | CT_ITS ---
CT Scan of the Chest without Contrast: Clinical Indication: Lung cancer screening, personal history of nicotine dependence Technique: Contiguous sections were acquired throughout the chest without intravenous contrast. Dose reduction technique was used on this scan by utilizing automated exposure control and iterative recon struction technique. The dose-length product (DLP) was 109.65 mGy-cm. COMPARISON: 07/10/2020 Findings: There is no evidence of any significant mediastinal, hilar or axillary lymphadenopathy. Coronary isabel ry calcification are present. There is no evidence of pleural or pericardial effusion. No pulmonary nodule identified. Extremely subtle mosaic attenuation pattern of the lungs again noted. Images through the upper abdomen reveal no abnormalities. Impression: Lung RADS 1: Negative. 12 month follow-up screening CT advised. Reviewed, dictated and finalized at location . 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 12 month follow-up screening CT advised.
== END 2023-10-13 09:28 | disposition home or self-care (01) ==
PROVIDERS: PCP Family Medicine; Visit Provider Family Medicine
DX: Z12.2 Encounter for screening for malignant neoplasm of respiratory organs (principal); Z87.891 Personal history of nicotine dependence
CPT/HCPCS: 71271

== ENCOUNTER 2023-11-16 00:11 | Day surgery (SDC) | payer BC, SELFPAY ==
[2023-10-24 09:24] VITALS: BMI 31.0
--- NOTE | 2023-11-14 11:38 | SUR.PREOP ---
Patient called regarding upcoming procedure. Reviewed preop instructions, appointment times, and procedure prep.
[2023-11-16 09:38] VITALS: BP 109/66; PULSE 87; RESP 20; TEMP 36.2; O2SAT 95
[2023-11-16] MEDS: LACTATED RINGERS 1,000 ML 150 ML IV CONT (09:56)
[2023-11-16 09:58] LABS: Glucose Point of Care 143 mg/dl (65-105)
--- NOTE | 2023-11-16 10:19 | PM.HPGS ---
History of Present Illness History of Present Illness Consent: Risks, benefits, and alternatives have been discussed and questions answered. Patient agrees to proceed with procedure. Chief complaint: neoplasm screening Narrative: Sol Rosas is a 58 year old female here for screening colonoscopy, last one 2014 Review of Systems Constitutional: Constitutional: Denies headache(s) and Denies weakness Eyes: Eyes: Denies blurry vision ENT: Reports Normal hearing present, Denies headache(s) and Denies neck pain Cardiovascular: Cardiovascular: Denies chest pain and Denies dyspnea Respiratory: Respiratory: Denies dyspnea Gastrointestinal: Gastrointestinal: Reports no additional gastrointestinal complaints Genitourinary: Genitourinary: Denies dysuria Musculoskeletal: Musculoskeletal: Denies neck pain Integumentary/Breasts: Skin/Breast: Denies dry skin Neurologic: Reports Normal hearing present, Denies headache(s) and Denies weakness Psychiatric: Psychiatric: Denies anxiety Endocrine: Endocrine: Denies change in body appearance Hematologic/Lymphatic: Hematologic/Lymphatic: Denies easy bleeding Allergic/Immunologic: Allergic/Immunologic: Denies urticaria PMFSH Past Medical History Medical History (Updated 11/16/23 @ 10:20 by Tyson Live MD) Acute respiratory failure with hypoxia CAP (community acquired pneumonia) 08/09/2019 Cigarette smoker Colon cancer screening Diabetes mellitus Diverticulosis DVT of popliteal vein Eczema of lower leg bilateral feet Gastroesophageal reflux Hematuria Irritable bowel syndrome with mixed bowel habits Migraine, unspecified, not intractable, without status migrainosus Oral candidiasis Type 2 diabetes mellitus treated with insulin Hemoglobin A1c February 2020 6.8 Surgical History Surgical History Congenital cataract resection Ganglion cyst of dorsum of left wrist History of endometrial ablation (~2005) Hx of tonsillectomy Family History Family History Grandparent Diabetes mellitus Hyperlipidemia Mother , of malignant hyperthermia as a side effect of anesthesia Diabetes mellitus CHF (congestive heart failure) Peripheral vascular disease Chronic cutaneous venous stasis ulcer Sibling Diabetes mellitus sister Peripheral artery disease brother Father , premature coronary artery disease Acute myocardial infarction Malignant neoplasm of prostate Hyperlipidemia Heart disease Pulmonary embolism Cerebrovascular accident Social History Social History Social History: Primary care physician: Dr. Claudette Figueroa Smoking packs per day: 1.5 Smoking cigarettes per day: 30.0 Years smoked: 41 Smoking pack-years: 61.50 Smoking status: Current every day smoker Tobacco type: cigarettes Second hand tobacco smoke exposure: Yes Alcohol intake: current Drinks per week: 3 Alcohol use details: She drinks between 2-3 alcoholic beverages a week. Substance use: never Substance use type: does not use Living arrangements: with family Additional living arrangements comments: She lives in [place] with her of 37 years. She has 2 adult children. She has 3 grand children. 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 Gender identity (if verbalized by the patient): Female Spiritual care concerns: No Meds Home Medications and Allergies Home Medications Medication Instructions Recorded Confirmed Type aspirin 81 mg tablet,delayed 81 mg PO DAILY 08/09/19 10/24/23 History release (Adult Aspirin Regimen) pen needle, diabetic 32 gauge x #100 ea 02/19/20 10/24/23 Rx 12/23 (CareFine Pen Needle) pen needle, diabetic 32 gauge x See Rx Instructions .Route
--- NOTE | 2023-11-16 10:21 | WPDANESEPPF ---
Anes - Initial Pre Proc Eval Procedure: Operation Date: 11/16/23 11:00 Proposed Procedures p Screening Colonoscopy - Tyson Live MD Date/Time: 11/16/23 10:21 Surgeon: Tyson Live MD Pre Op Diagnosis: neoplasm screening Patient Data Age: 58 Gender: F Height: 1.63 m Weight: 78.8 kg Last Vital Signs Temp 97.2 F L 11/16/23 09:38 Pulse 87 11/16/23 09:38 Resp 20 11/16/23 09:38 BP 109/66 11/16/23 09:38 Pulse Ox 95 11/16/23 09:38 O2 Del Method Room Air 11/16/23 09:38 Allergies Allergy/AdvReac Type Severity Reaction Status Date / Time hydrocodone Allergy Mild unknown Verified 11/16/23 09:37 exenatide [From Bydureon] Allergy Unknown Verified 11/16/23 09:37 poison sia extract Allergy Rash Verified 11/16/23 09:37 Home Medications Medication Instructions Recorded Confirmed Type aspirin 81 mg tablet,delayed 81 mg PO DAILY 08/09/19 10/24/23 History release (Adult Aspirin Regimen) pen needle, diabetic 32 gauge x #100 ea 02/19/20 10/24/23 Rx 3/16 (CareFine Pen Needle) pen needle, diabetic 32 gauge x See Rx Instructions .Route 07/27/22 10/24/23 Rx 5/32 (BD Ultra-Fine Rufina Pen .COMPLEX #90 ea Needle) insulin degludec 100 unit/mL (3 18 unit (0.18 mL) .Route Q24H #15 12/27/22 10/24/23 Rx mL) subcutaneous pen (Tresiba mL FlexTouch U-100 insulin) albuterol sulfate 90 mcg/actuation See Rx Instructions .Route 02/03/23 10/24/23 Rx aerosol inhaler .COMPLEX #17 grams blood-glucose meter,continuous #1 ea 02/03/23 10/24/23 Rx (Dexcom G6 Historical Site Guide) blood-glucose sensor (Dexcom G6 #9 ea 02/03/23 10/24/23 Rx Sensor device) fluticasone fur. 100 mcg-umeclid 1 inh inhalation DAILY #84 ea 05/09/23 10/24/23 Rx 62.5 mcg-vilant 25 mcg inhalat.powder (Trelegy Ellipta) lisinopril 2.5 mg tablet See Rx Instructions .Route 08/15/23 10/24/23 Rx .COMPLEX #90 tabs venlafaxine 37.5 mg See Rx Instructions .Route 08/15/23 10/24/23 Rx capsule,extended release 24 hr .COMPLEX #90 caps empagliflozin 25 mg tablet See Rx Instructions .Route 10/07/23 10/24/23 Rx (Jardiance) .COMPLEX #90 tabs amoxicillin 875 mg-potassium 1 tablet PO BID #20 tabs 10/18/23 10/24/23 Rx clavulanate 125 mg tablet blood-glucose transmitter (Dexcom #1 ea 10/18/23 10/24/23 Rx G6 Transmitter device) metformin 500 mg tablet,extended 1,000 mg PO BID #360 tabs 10/18/23 10/24/23 Rx release 24hr (osmotic) atorvastatin 40 mg tablet See Rx Instructions .Route 10/25/23 Rx .COMPLEX #90 tabs Laboratory Tests 11/16/23 09:49 POC Capillary Glucose 143 H mg/dl (65-105) Patient hx anesthesia problems: none Family hx anesthesia problems: none Results Review: All pre-operative results and documents have been reviewed as part of the pre-operative evaluation. [facility] Past Medical History Medical History (Updated 11/16/23 @ 10:20 by Tyson Live MD) Acute respiratory failure with hypoxia CAP (community acquired pneumonia) 08/09/2019 Cigarette smoker Colon cancer screening Diabetes mellitus Diverticulosis DVT of popliteal vein Eczema of lower leg bilateral feet Gastroesophageal reflux Hematuria Irritable bowel syndrome with mixed bowel habits Migraine, unspecified, not intractable, without status migrainosus Oral candidiasis Type 2 diabetes mellitus treated with insulin Hemoglobin A1c February 2020 6.8 Surgical History Surgical History Congenital cataract resection Ganglion cyst of dorsum of left wrist History of endometrial ablation (~2005) Hx of tonsillectomy Family History Family History Grandparent Diabetes mellitus Hyperlipidemia Mother , of malignant hyperthermia as a side effect of anesthesia Diabetes mellitus CHF (congestive heart failure) Peripheral vascular disease Chronic cutaneous venous st
[2023-11-16 10:47] VITALS: BP 145/88; PULSE 97; RESP 20; O2SAT 97
[2023-11-16 10:57] VITALS: BP 100/72; PULSE 96; RESP 20; O2SAT 94
[2023-11-16 11:07] VITALS: BP 108/66; PULSE 87; RESP 25; O2SAT 95
== END 2023-11-16 11:30 | disposition home or self-care (01) ==
PROVIDERS: PCP Family Medicine; Visit Provider Internal Medicine Gastroenterology
PROC: 0DJD8ZZ Inspection of Lower Intestinal Tract, Via Natural or Artificial Opening Endoscopic (ICD-10-PCS; CPT 45378; principal; 2023-11-16 11:00)
DX: Z12.11 Encounter for screening for malignant neoplasm of colon (principal); K64.8 Other hemorrhoids; K57.30 Diverticulosis of large intestine without perforation or abscess without bleeding; E11.9 Type 2 diabetes mellitus without complications; K21.9 Gastro-esophageal reflux disease without esophagitis; K58.2 Mixed irritable bowel syndrome; F17.210 Nicotine dependence, cigarettes, uncomplicated; J96.01 Acute respiratory failure with hypoxia; Z79.4 Long term (current) use of insulin; Z79.82 Long term (current) use of aspirin; Z79.85 Long-term (current) use of injectable non-insulin antidiabetic drugs; Z79.51 Long term (current) use of inhaled steroids; Z79.84 Long term (current) use of oral hypoglycemic drugs; Z98.890 Other specified postprocedural states; Z86.718 Personal history of other venous thrombosis and embolism; Z82.49 Family history of ischemic heart disease and other diseases of the circulatory system; Z80.42 Family history of malignant neoplasm of prostate
CPT/HCPCS: 45378; 82948; J2704; J7120

== ENCOUNTER 2024-02-17 07:07 | Outpatient (CLI) | payer BC, SELFPAY ==
--- NOTE | ~2024-02-17 | MM_ITS ---
EXAMINATION: MM screening maria l BI w shaun HISTORY: Screening mammogram TECHNIQUE: Craniocaudal and mediolateral oblique 3-D tomosynthesis images were obtained and synthetic 2-D images were generated. CAD analysis was submitted and interpreted. COMPARISON: January 11, 2015 bilateral screening mammogram BREAST PARENCHYMAL COMPOSITION: There are scattered areas of fibroglandular density. FINDINGS: There is no evidence of suspicious mass, calcification, or architectural distortion to sugg est malignancy in either breast. There has been no suspicious interval change. IMPRESSION: 1. No mammographic evidence of malignancy. 2. Recommend routine screening mammography in one year. BI-RADS Category 1: Negative Reviewed, dictated and finalized at location B.
== END 2024-02-17 07:08 | disposition home or self-care (01) ==
LOC: ANHIMG 07:10
PROVIDERS: PCP Family Medicine; Visit Provider Family Medicine
DX: Z12.31 Encounter for screening mammogram for malignant neoplasm of breast (principal)
CPT/HCPCS: 77063; 77067

== ENCOUNTER 2024-03-06 12:42 | Outpatient (CLI) | payer BC, SELFPAY ==
[2024-03-06 13:41] LABS: Anion Gap 7 mmol/L (4-12); Blood Urea Nitrogen 15 mg/dL (7-17); Calcium 9.6 mg/dL (8.4-10.2); Carbon Dioxide 25 mmol/L (22-30); Chloride 104 mmol/L (98-107); Estimated Glomerular Filt Rate > 60; Glucose 129 mg/dL (65-110); Potassium 4.2 mmol/L (3.4-5.0); Sodium 136 mmol/L (137-145)
== END 2024-03-06 12:43 | disposition home or self-care (01) ==
LOC: ANHSURGERY 12:47
PROVIDERS: Anesthesiology; PCP Family Medicine; Visit Provider Urology
DX: Z01.818 Encounter for other preprocedural examination (principal); E11.65 Type 2 diabetes mellitus with hyperglycemia
CPT/HCPCS: 36415; 80048

== ENCOUNTER 2024-03-09 01:08 | Day surgery (SDC) | payer BC, SELFPAY ==
[2024-02-28 13:34] VITALS: BMI 30.2
--- NOTE | 2024-02-28 13:36 | PC.NURSE ---
Report to the Outpatient Waiting Room, entrance under the green pavilion located off [address], at time _0615_ on date _[id number]_. Planned Procedure Time: _0815_. Time changes happen often and if your time is changed the preop area will call you the afternoon before. - You and your visitor will be asked to self-screen and do not enter if you have any COVID symptoms. - A mask is optional within the hospital at this time. Patients may have clear liquids (water, carbonated beverages, clear teas, apple juice) until 3 hours prior to surgery with a maximum of 20 ounces. - No food from midnight until time of surgery Take the following medications with a SIP of water the morning of surgery: __Venlafaxine DO NOT STOP ANY OF YOUR OTHER PRESCRIPTION MEDICATIONS PRIOR TO SURGERY ?EXCEPT THE FOLLOWING Medications to discontinue per physician Aspirin Date to take last sjcq__[id number] Please no make-up, nail italian, hairspray, perfume, deodorant, or body powder the day of surgery. No jewelry (including any body piercings) or valuables the day of surgery, leave them at home. Please take a shower or bath the night before, or the morning of, surgery with an antibacterial soap. Wear comfortable, loose fitting clothing. - Jewelry must be removed prior to entering the operating room. Rings and piercings that are not removed may be cut off. - The hospital will not accept responsibility for valuables. - Please leave all valuables, including medications, at home the day of surgery. If you are going home after surgery, a licensed armored car guard and driver must drive you home. - NO public transportation without another adult if you receive anesthesia. - We recommend that an adult stay with you for 24 hours following discharge. - We also recommend that you do not drive, make important decision, drink alcoholic beverages, or take any drugs that were not prescribed by your health care provider for at least 24 hours after your discharge time. Follow any additional instructions given to you from your surgeon. If you or anyone in your household have experienced Covid symptoms in the past week, please notify your surgeon or the nurse liaison at the phone number below for possible testing. Telephone instructions given to _Sol__and asked if any additional questions and then verbalized understanding. Patient advised to call surgeon office or pre surgery nurse liaison [phone] if any additional questions.
--- NOTE | 2024-03-04 19:28 | PM.IMHP ---
H&P: HPI History of Present Illness Date/Time: 03/04/24 19:28 Chief Complaint: LUCY Narrative: 58 yo who desires surgical treatment for LUCY Review of Systems Review of Systems: All systems reviewed & are unremarkable except as noted in HPI and below PMFSH Past Medical History Medical History Acute respiratory failure with hypoxia CAP (community acquired pneumonia) 08/09/2019 Cigarette smoker Colon cancer screening Diabetes mellitus Diverticulosis DVT of popliteal vein Eczema of lower leg bilateral feet Gastroesophageal reflux Hematuria Irritable bowel syndrome with mixed bowel habits Migraine, unspecified, not intractable, without status migrainosus Oral candidiasis Type 2 diabetes mellitus treated with insulin Hemoglobin A1c February 2020 6.8 Surgical History Surgical History Congenital cataract resection Ganglion cyst of dorsum of left wrist History of endometrial ablation (~2005) Hx of tonsillectomy Family History Family History Grandparent Diabetes mellitus Hyperlipidemia Mother , of malignant hyperthermia as a side effect of anesthesia Diabetes mellitus CHF (congestive heart failure) Peripheral vascular disease Chronic cutaneous venous stasis ulcer Sibling Diabetes mellitus sister Peripheral artery disease brother Father , premature coronary artery disease Acute myocardial infarction Malignant neoplasm of prostate Hyperlipidemia Heart disease Pulmonary embolism Cerebrovascular accident Social History Social History Social History: Primary care physician: Dr. Claudette Figueroa Smoking packs per day: 1 Smoking cigarettes per day: 20.0 Years smoked: 40 Smoking pack-years: 40.00 Smoking status: Current every day smoker Tobacco type: cigarettes Second hand tobacco smoke exposure: Yes Alcohol intake: current Drinks per week: 3 Alcohol use details: She drinks between 2-3 alcoholic beverages a week. Substance use: never Substance use type: does not use Living arrangements: with family Additional living arrangements comments: She lives in [place] with her of 37 years. She has 2 adult children. She has 3 grand children. 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 Gender identity (if verbalized by the patient): Female Spiritual care concerns: No Meds Home Medications and Allergies Home Medications Medication Instructions Recorded Confirmed Type aspirin 81 mg tablet,delayed 81 mg PO DAILY 08/09/19 02/28/24 History release (Adult Aspirin Regimen) pen needle, diabetic 32 gauge x #100 ea 02/19/20 02/28/24 Rx 12/23 (CareFine Pen Needle) albuterol sulfate 90 mcg/actuation See Rx Instructions .Route 02/03/23 02/28/24 Rx aerosol inhaler .COMPLEX #17 grams blood-glucose meter,continuous #1 ea 02/03/23 02/28/24 Rx (Dexcom G6 Site Promotion Agent) lisinopril 2.5 mg tablet See Rx Instructions .Route 08/15/23 02/28/24 Rx .COMPLEX #90 tabs venlafaxine 37.5 mg See Rx Instructions .Route 08/15/23 02/28/24 Rx capsule,extended release 24 hr .COMPLEX #90 caps empagliflozin 25 mg tablet See Rx Instructions .Route 10/07/23 02/28/24 Rx (Jardiance) .COMPLEX #90 tabs blood-glucose transmitter (Dexcom #1 ea 10/18/23 02/28/24 Rx G6 Transmitter device) metformin 500 mg tablet,extended 1,000 mg PO BID #360 tabs 10/18/23 02/28/24 Rx release 24hr (osmotic) insulin degludec 100 unit/mL (3 18 unit (0.18 mL) .Route Q24H #15 12/26/23 02/28/24 Rx mL) subcutaneous pen (Tresiba mL FlexTouch U-100 insulin) blood-glucose sensor (Dexcom G6 #9 ea 01/17/24 02/28/24 Rx Sensor device) pen needle, diabetic 32 gauge x See Rx Instructions .R
--- NOTE | 2024-03-08 12:09 | WPDANESEPPF ---
Anes - Initial Pre Proc Eval Procedure: Operation Date: 03/09/24 08:15 Proposed Procedures p Urethral Sling - Unruly Paiz MD Date/Time: 03/08/24 12:09 Surgeon: Unruly Paiz MD Pre Op Diagnosis: stress incontinence Patient Data Age: 58 Gender: F Height: 1.63 m Weight: 80 kg Allergies Allergy/AdvReac Type Severity Reaction Status Date / Time hydrocodone Allergy Mild unknown Verified 03/09/24 06:40 exenatide [From Bydureon] Allergy Unknown Verified 03/09/24 06:40 poison sia extract Allergy Rash Verified 03/09/24 06:40 Home Medications Medication Instructions Recorded Confirmed Type aspirin 81 mg tablet,delayed 81 mg PO DAILY 08/09/19 02/28/24 History release (Adult Aspirin Regimen) pen needle, diabetic 32 gauge x #100 ea 02/19/20 02/28/24 Rx 12/23 (CareFine Pen Needle) albuterol sulfate 90 mcg/actuation See Rx Instructions .Route 02/03/23 02/28/24 Rx aerosol inhaler .COMPLEX #17 grams blood-glucose meter,continuous #1 ea 02/03/23 02/28/24 Rx (Dexcom G6 Director Of Partnerships) lisinopril 2.5 mg tablet See Rx Instructions .Route 08/15/23 02/28/24 Rx .COMPLEX #90 tabs venlafaxine 37.5 mg See Rx Instructions .Route 08/15/23 02/28/24 Rx capsule,extended release 24 hr .COMPLEX #90 caps empagliflozin 25 mg tablet See Rx Instructions .Route 10/07/23 02/28/24 Rx (Jardiance) .COMPLEX #90 tabs blood-glucose transmitter (Dexcom #1 ea 10/18/23 02/28/24 Rx G6 Transmitter device) metformin 500 mg tablet,extended 1,000 mg PO BID #360 tabs 10/18/23 02/28/24 Rx release 24hr (osmotic) insulin degludec 100 unit/mL (3 18 unit (0.18 mL) .Route Q24H #15 12/26/23 02/28/24 Rx mL) subcutaneous pen (Tresiba mL FlexTouch U-100 insulin) blood-glucose sensor (Dexcom G6 #9 ea 01/17/24 02/28/24 Rx Sensor device) pen needle, diabetic 32 gauge x See Rx Instructions .Route 02/14/24 02/28/24 Rx /32 (BD Ultra-Fine Rufina Pen .COMPLEX #90 ea Needle) fluticasone fur. 100 mcg-umeclid 1 inh inhalation DAILY #84 ea 02/27/24 02/28/24 Rx 62.5 mcg-vilant 25 mcg inhalat.powder (Trelegy Ellipta) Patient hx anesthesia problems: none Family hx anesthesia problems: none Results Review: All pre-operative results and documents have been reviewed as part of the pre-operative evaluation. [facility] Past Medical History Medical History (Updated 03/08/24 @ 12:10 by Junaid Anderson DO) Acute respiratory failure with hypoxia Asthma CAP (community acquired pneumonia) 08/09/2019 Cigarette smoker Colon cancer screening COPD (chronic obstructive pulmonary disease) Diabetes mellitus Diverticulosis DVT of popliteal vein Eczema of lower leg bilateral feet Gastroesophageal reflux Hematuria Irritable bowel syndrome with mixed bowel habits Migraine, unspecified, not intractable, without status migrainosus Mixed hyperlipidemia Oral candidiasis Type 2 diabetes mellitus treated with insulin Hemoglobin A1c February 2020 6.8 Surgical History Surgical History Congenital cataract resection Ganglion cyst of dorsum of left wrist History of endometrial ablation (~2005) Hx of tonsillectomy Family History Family History Grandparent Diabetes mellitus Hyperlipidemia Mother , of malignant hyperthermia as a side effect of anesthesia Diabetes mellitus CHF (congestive heart failure) Peripheral vascular disease Chronic cutaneous venous stasis ulcer Sibling Diabetes mellitus sister Peripheral artery disease brother Father , premature coronary artery disease Acute myocardial infarction Malignant neoplasm of prostate Hyperlipidemia Heart disease Pulmonary embolism Cerebrovascular accident Social History Social History Social History: Primary care physician: Dr. Claudette Figueroa
--- NOTE | 2024-03-09 04:34 | WPDHPUPDATE1 ---
History and Physical Update Update Date/Time: 03/09/24 04:34 History and Physical has been reviewed, including an updated exam of the patient. There are NO changes in the patient's condition. Risks, benefits, and alternatives have been discussed and questions answered. Patient agrees to proceed with procedure.
[2024-03-09 06:40] LABS: Glucose Point of Care 109 mg/dl (65-105)
[2024-03-09 06:55] VITALS: BP 107/63; PULSE 76; TEMP 36.4; O2SAT 94
[2024-03-09] MEDS: LACTATED RINGERS 1,000 ML 30 ML IV CONT (06:59)
[2024-03-09] MEDS: ceFAZolin 2 GM/D5W 50 ML 2 GM/50 ML BAG IVPB (08:18)
[2024-03-09] MEDS: BUPIVACAINE/EPINEPHRINE 0.5% 10 ML VIAL INFILTRATE (08:28)
[2024-03-09 08:47] VITALS: BP 100/58; PULSE 75; O2SAT 100
[2024-03-09 09:17] VITALS: BP 104/54; PULSE 70
[2024-03-09] MEDS: traMADol HCL (*CRX) 50 MG TABLET PO (09:17)
[2024-03-09 09:34] LABS: Glucose Point of Care 123 mg/dl (65-105)
[2024-03-09 09:39] VITALS: BP 107/61; PULSE 71
--- NOTE | 2024-03-09 09:39 | P.OP_ITS ---
Procedure Note - Detailed Date of Procedure 03/09/24 Pre-op Diagnosis stress incontinence Post-op Diagnosis Same Procedure Performed mid urethral sling cystoscopy Surgeon Unruly Paiz MD Anesthesia MAC and Local Indications This is a female with confirm stress urinary incontinence. She desires surgical correction. She understands the risks of bleeding, infection, injury to the urinary tract, vaginal mesh extrusion, urinary tract mesh erosion, obstructive voiding requiring a secondary procedure, hip and leg pain, dyspareunia, inability to improve overactive bladder symptoms. She agrees to proceed. Description of Procedure She was correctly identified. Informed consent obtained. She was brought the operating room. She was given appropriate anesthesia. We use monitored anesthesia care. She was given appropriate perioperative antibiotics. A time- out performed. I marked out the site of the inner thigh incisions. I anesthetized the skin and made those incisions. I anesthetized the anterior vaginal wall over the mid urethra. I hydrodissected with 10 cc of local anesthesia mix with epinephrine. I made a 1 cm incision. I dissected out laterally taking great care not to injure the refilled vaginal wall. I passed the helical trocars. First on the left. Then on the right. I did this from the thigh incision towards the vaginal incision. The sling was connected to the trocars and brought out through the thigh incision. I tensioned the sling appropriately. I cut and the plastic sheaths. I then closed the incision with 2 0 Vicryl. I did this in a running fashion. There was no sign of any penetration of the sulcus. There is no vaginal exposed mesh in the midline On cystoscopy there is no tumors or surgical artifact. There was no surgical artifact in the urethra. I cut the excess sling material. Close incisions with glue. She was awakened and transferred to the PACU in stable condition. Start time 8:27 a.m. Tensioning time 8:37 a.m. Stop time 8:41 a.m. Voiding time 9:05 a.m. Implants Urethral sling Drains No Packing No Pathology None sent Complications No immediate complications Condition Stable Disposition PACU
== END 2024-03-09 09:40 | disposition home or self-care (01) ==
PROVIDERS: PCP Family Medicine; Visit Provider Urology
PROC: (CPT 57288; principal; 2024-03-09 08:15)
DX: N39.3 Stress incontinence (female) (male) (principal); E11.9 Type 2 diabetes mellitus without complications; K58.2 Mixed irritable bowel syndrome; K21.9 Gastro-esophageal reflux disease without esophagitis; F17.210 Nicotine dependence, cigarettes, uncomplicated; Z79.82 Long term (current) use of aspirin; Z79.51 Long term (current) use of inhaled steroids; Z79.84 Long term (current) use of oral hypoglycemic drugs; Z79.4 Long term (current) use of insulin; E66.9 Obesity, unspecified; Z68.30 Body mass index [BMI] 30.0-30.9, adult
CPT/HCPCS: 57288; 82948; A9270; C1771; J0690; J1100; J2250; J2405; J2704; J3010; J7030; J7120

== ENCOUNTER 2024-05-06 06:25 | Emergency (ER) | payer BC, SELFPAY ==
[2024-05-06 06:41] VITALS: BP 99/62; PULSE 66; RESP 16; TEMP 36.6; O2SAT 99
[2024-05-06 06:44] VITALS: O2SAT 95
[2024-05-06 07:00] VITALS: BP 91/58; PULSE 61; RESP 16; O2SAT 94
--- NOTE | 2024-05-06 07:26 | ED.GENADULT ---
HPI - General Adult General Chief complaint: Upper Respiratory Infection Stated complaint: chills, bodyaches Time Seen by Provider: 05/06/24 06:51 History of Present Illness HPI narrative: 58-year-old female presented to the emergency department for complaint of body aches and fatigue, patient states she started developing symptoms a few days ago. Patient did take a COVID test at home that was positive. Patient's primary complaint is body aches. Patient states that she has been attempting to take Tylenol and ibuprofen for pain control but states she still feels uncomfortable. Related Data Home Medications Medication Instructions Recorded Confirmed aspirin 81 mg tablet,delayed 81 mg PO DAILY 08/09/19 02/28/24 release (Adult Aspirin Regimen) Allergies Allergy/AdvReac Type Severity Reaction Status Date / Time hydrocodone Allergy Mild unknown Verified 03/09/24 06:40 exenatide [From Bydureon] Allergy Unknown Verified 03/09/24 06:40 poison sia extract Allergy Rash Verified 03/09/24 06:40 Review of Systems Review of Systems: All systems reviewed & are unremarkable except as noted in HPI and below PMFSH Past Medical History Medical History (Updated 05/06/24 @ 08:45 by Moe Fernandez MD) Acute respiratory failure with hypoxia Asthma CAP (community acquired pneumonia) 08/09/2019 Cigarette smoker Colon cancer screening COPD (chronic obstructive pulmonary disease) Diabetes mellitus Diverticulosis DVT of popliteal vein Eczema of lower leg bilateral feet Gastroesophageal reflux Hematuria Irritable bowel syndrome with mixed bowel habits Migraine, unspecified, not intractable, without status migrainosus Mixed hyperlipidemia Oral candidiasis Type 2 diabetes mellitus treated with insulin Hemoglobin A1c February 2020 6.8 Surgical History Surgical History Congenital cataract resection Ganglion cyst of dorsum of left wrist History of endometrial ablation (~2005) Hx of tonsillectomy Family History Family History Grandparent Diabetes mellitus Hyperlipidemia Mother , of malignant hyperthermia as a side effect of anesthesia Diabetes mellitus CHF (congestive heart failure) Peripheral vascular disease Chronic cutaneous venous stasis ulcer Sibling Diabetes mellitus sister Peripheral artery disease brother Father , premature coronary artery disease Acute myocardial infarction Malignant neoplasm of prostate Hyperlipidemia Heart disease Pulmonary embolism Cerebrovascular accident Social History Social History Social History: Primary care physician: Dr. Claudette Figueroa Smoking packs per day: 1 Smoking cigarettes per day: 20.0 Years smoked: 40 Smoking pack-years: 40.00 Smoking status: Current every day smoker Tobacco type: cigarettes Second hand tobacco smoke exposure: Yes Alcohol intake: current Drinks per week: 3 Alcohol use details: She drinks between 2-3 alcoholic beverages a week. Substance use: never Substance use type: does not use Living arrangements: with family Additional living arrangements comments: She lives in [place] with her of 37 years. She has 2 adult children. She has 3 grand children. 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 Gender identity (if verbalized by the patient): Female Spiritual care concerns: No Exam Narrative: APPEARANCE: Well appearing, no pain, no distress, well-nourished. HEAD: normocephalic, atraumatic. EYES: PERRLA/EOMI, conjunctivae clear. NOSE: Normal no drainage EARS:TMS clear with good light reflex. THROAT: Pharynx clear, no exudate. NECK: Supple. No adenopathy, no masses. RESPIRATORY: Airway patent, respirations nonlabored. Clear to auscultatio
[2024-05-06 07:36] LABS: Influenza A QL RT-PCR Negative (Negative); Influenza B QL RT-PCR Negative (Negative); RSV RNA, RT-PCR Negative (Negative); SARS-CoV-2 RNA PCR Positive (Negative)
[2024-05-06] MEDS: KETOROLAC 15 MG/ML VIAL (*BKC) IV PUSH (07:44)
[2024-05-06] MEDS: SODIUM CHLORIDE 0.9% IV 1,000 ML 999 ML IV CONT (07:45)
[2024-05-06 07:59] LABS: Basophils Percent Auto 0.5 % (0.2-1.2); Eosinophils Absolute Auto 0.1 K/mm3 (0-0.3); Eosinophils Percent Auto 1.2 % (0-4.4); Hematocrit 50.7 % (37.0-47.0); Hemoglobin 16.4 g/dL (12.0-15.0); Immature Granulocyte Absolute 0.02 K/mm3 (0.00-0.031); Immature Granulocyte Percent A 0.3 % (0-0.5); Lymphocytes Absolute Auto 2.79 K/mm3 (0.9-3.2); Lymphocytes Percent Auto 36.2 % (18.3-44.2); Mean Corpuscular HGB Conc 32.3 g/dl (32-36); Mean Corpuscular Hemoglobin 28.4 pg (26-34); Mean Corpuscular Volume 87.9 fl (80-100); Mean Platelet Volume 9.1 fl (7.4-10.4); Monocytes Absolute Auto 0.9 K/mm3 (0.1-0.6); Monocytes Percent Auto 11.4 % (2.6-8.5); Neutrophils Absolute Auto 3.9 K/mm3 (1.3-6.7); Neutrophils Percent Auto 50.4 % (45.5-73.1); Platelet Count Result 284 k/mm3 (150-375); Red Blood Count 5.77 M/mm3 (4.2-5.4); Red Cell Distribution Width 15.3 % (11.5-14.5); White Blood Count 7.7 K/mm3 (4.5-10.0)
[2024-05-06 08:00] VITALS: BP 94/64; PULSE 61; RESP 16; O2SAT 95
[2024-05-06 08:07] LABS: Creatine Kinase 36 U/L (30-135)
[2024-05-06 08:09] LABS: Alanine Aminotransferase 19 U/L (6-35); Albumin Level 4.3 g/dL (3.5-5.1); Alkaline Phosphatase 81 U/L (38-126); Anion Gap 11 mmol/L (4-12); Aspartate Amino Transferase 27 U/L (14-36); Bilirubin,Total 0.3 mg/dL (0.2-1.3); Blood Urea Nitrogen 19 mg/dL (7-17); Calcium 8.7 mg/dL (8.4-10.2); Carbon Dioxide 24 mmol/L (22-30); Chloride 102 mmol/L (98-107); Estimated CRCL calculation 76 ml/min; Estimated Glomerular Filt Rate > 60; Glucose 124 mg/dL (65-110); Potassium 4.1 mmol/L (3.4-5.0); Sodium 137 mmol/L (137-145)
[2024-05-06 08:50] VITALS: BP 92/62; PULSE 60; RESP 16; O2SAT 98
== END 2024-05-06 08:50 | disposition home or self-care (01) ==
PROVIDERS: Student in an Organized Health Care Education/Training Program; Emergency Provider Emergency Medicine; PCP Family Medicine
DX: U07.1 COVID-19 (principal); M79.10 Myalgia, unspecified site; F17.210 Nicotine dependence, cigarettes, uncomplicated; J45.909 Unspecified asthma, uncomplicated; E11.9 Type 2 diabetes mellitus without complications; K21.9 Gastro-esophageal reflux disease without esophagitis; Z79.4 Long term (current) use of insulin
CPT/HCPCS: 36415; 80053; 82550; 85025; 87637; 96361; 96374; 99284; J1885; J7030

== ENCOUNTER 2024-08-28 02:10 | Emergency (ER) | payer BC, SELFPAY ==
[2024-08-28 02:16] VITALS: BP 100/67; PULSE 101; RESP 15; TEMP 36.9; O2SAT 90
[2024-08-28] MEDS: methylPREDNISolone SOD SUCC 125 MG VIAL IV PUSH (02:34)
[2024-08-28] MEDS: FAMOTIDINE 20 MG/2 ML VIAL IV PUSH (02:34)
[2024-08-28] MEDS: diphenhydrAMINE HCl INJ 50 MG/ML VIAL IV PUSH (02:34)
--- NOTE | 2024-08-28 02:34 | ED_ITS ---
HPI - General Adult General Chief complaint: Allergic Reaction Stated complaint: rash Time Seen by Provider: 08/28/24 02:16 History of Present Illness HPI narrative: Patient is a 59-year-old female who presents to the emergency department this evening due to concern for an allergic reaction. Patient states that on Tuesday approximately 2 days ago she was washing the dishes and shortly after noticed some irritations to her bilateral hands. Patient admits that she does have eczema and states that initially this presented very similar to her eczema. She also did develop some swelling to her bilateral hands and fingers. Patient is unsure of what she may have been exposed to, stating that the soap that she was using to wash dishes this 1 that she has used in the past. Additional exposures or possible allergens. Patient states that she also noticed some hives in her belly and back and decided to come to the emergency department for further evaluation. Patient admits that she does have a history of COPD and does use an inhaler at home, she did have some mild shortness of breath and wheezing which she believes is related to her COPD but also prompted her to come to the emergency department for further evaluation. She is currently denying any difficulty breathing, any sensation that her cough throat is swelling or closing. Denies any history of anaphylaxis. Denies any current chest pain or difficulty breathing. No additional symptoms or concerns at this time. Related Data Home Medications Medication Instructions Recorded Confirmed aspirin 81 mg tablet,delayed 81 mg PO DAILY 08/09/19 02/28/24 release (Adult Aspirin Regimen) Allergies Allergy/AdvReac Type Severity Reaction Status Date / Time hydrocodone Allergy Mild unknown Verified 08/28/24 02:21 exenatide [From Bydureon] Allergy Unknown Verified 08/28/24 02:21 poison sia extract Allergy Rash Verified 08/28/24 02:21 Review of Systems Review of Systems: All systems are reviewed and are negative unless stated otherwise in the HPI. [facility] Past Medical History Medical History Acute respiratory failure with hypoxia Asthma CAP (community acquired pneumonia) 08/09/2019 Cigarette smoker Colon cancer screening COPD (chronic obstructive pulmonary disease) Diabetes mellitus Diverticulosis DVT of popliteal vein Eczema of lower leg bilateral feet Gastroesophageal reflux Hematuria Irritable bowel syndrome with mixed bowel habits Migraine, unspecified, not intractable, without status migrainosus Mixed hyperlipidemia Oral candidiasis Type 2 diabetes mellitus treated with insulin Hemoglobin A1c February 2020 6.8 Surgical History Surgical History Congenital cataract resection Ganglion cyst of dorsum of left wrist History of endometrial ablation (~2005) Hx of tonsillectomy Family History Family History Grandparent Diabetes mellitus Hyperlipidemia Mother , of malignant hyperthermia as a side effect of anesthesia Diabetes mellitus CHF (congestive heart failure) Peripheral vascular disease Chronic cutaneous venous stasis ulcer Sibling Diabetes mellitus sister Peripheral artery disease brother Father , premature coronary artery disease Acute myocardial infarction Malignant neoplasm of prostate Hyperlipidemia Heart disease Pulmonary embolism Cerebrovascular accident Social History Social History Social History: Primary care physician: Dr. Claudette Figueroa Smoking packs per day: 1 Smoking cigarettes per day: 20.0 Years smoked: 40 Smoking pack-years: 40.00 Smoking status: Current every day smoker Tobacco type: cigarettes Second hand tobacco smoke exposure: Yes Alcohol intake: current Drinks per week: 3 Alcohol use details: She drinks between 2-3 alcoholic beverages a week. Substance use: never Substance use type: does not use Living arrangements: with family Additional living arrangements comments: She lives in [place] with her of 37 years. She has 2 adult children. She has 3 grand children. 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 Gender identity (if verbalized by the patient): Female Spiritual care concerns: No Exam Narrative: General: Alert, awake, afebrile, in no acute distress. HEENT: PERRL, no rhinorrhea, no post nasal drip, oropharynx clear. Cardiovascular: Regular rate and rhythm, no murmurs, rubs or gallops, no peripheral edema. Respiratory: Clear to auscultation bilaterally, no tachypnea, no wheezing, no rhonchi, no rubs, no respiratory distress. Abdomen: Soft, nontender, nondistended, no rebound, no guarding, no peritoneal signs. Musculoskeletal: No joint swelling or deformity, normal muscle tone. Skin: Mild urticaria noted in a few spots along the patient's abdomen and back, eczema to bilateral hands with mild swelling of the bilateral hand/digits. Neurological: Alert and oriented to person, place, and time. Follows all commands. No focal deficits, speech is clear and fluent. Course Vital Signs Vital signs: Vital Signs Temperature 98.4 F 08/28/24 02:16 Pulse Rate 101 H 08/28/24 02:16 Respiratory Rate 15 08/28/24 02:16 Blood Pressure 100/67 08/28/24 02:16 Pulse Oximetry 90 08/28/24 02:16 Oxygen Delivery Room Air 08/28/24 02:16 Temperature 98.4 F 08/28/24 02:16 Pulse Rate 79 08/28/24 04:25 Respiratory Rate 17 08/28/24 04:25 Blood Pressure 107/58 L 08/28/24 04:25 Pulse Oximetry 96 08/28/24 04:25 Oxygen Delivery Room Air 08/28/24 03:00 Procedures Foreign Body Removal Foreign Body #1: Foreign Body Removal Date: 08/27/24 Foreign Body Removal Time: 23:50 Time Out Performed: yes Site: left and hand Description of foreign body: other (Ring) Sedation/Analgesia: none Technique: manual removal (Trauma karthik ring cutter) Complications: none Post-procedure exam: awake, alert Medical Decision Making MDM Narrative Medical decision making narrative: The patient was evaluated by myself in the emergency department. History is obtained from patient who is an independent historian and physical exam was performed. External medical records were reviewed at this time. IV was established and pertinent tests were ordered. Patient was administered 50 mg of IV Benadryl, 20 mg of IV Pepcid and 125 mg IV Solu-Medrol. Patient was also administered DuoNeb breathing treatment. Differential diagnosis considerations include allergic reaction, anaphylaxis, psoriatic arthritis, eczema. Comorbidities impacting this visit include history of eczema. I have evaluated and discussed social determinants of health with the patient that could potentially impact subsequent diagnosis and treatment plans. On repeat assessment of the patient, reevaluation revealed that the patient is doing well and is in no acute distress. Patient symptoms have improved since she arrived to our emergency department. Patient was observed our emergency department for 2 hours. Repeat vital signs were all reviewed and noted to be stable. Differential diagnosis and treatment plan were discussed with the patient at bedside. Patient agrees with discussion and after shared medical decision making agrees with discharge. All questions were answered to the patient's satisfaction. Patient will follow up with her PCP in 3-5 days. He she was provided with a script for Medrol Dosepak and instructed to use as prescribed. She was also instructed to wear gloves while washing the dishes to prevent any possible contact dermatitis could have precipitated her eczema and patient is agreeable with this plan. Patient was provided with strict return precautions and instructed to return to the emergency department if any new or worsening symptoms develop. The patient was discharged in stable condition. Vital Signs Vital Signs: Vital Signs Temperature 98.4 F 08/28/24 02:16 Pulse Rate 101 H 08/28/24 02:16 Respiratory Rate 15 08/28/24 02:16 Blood Pressure 100/67 08/28/24 02:16 Pulse Oximetry 90 08/28/24 02:16 Oxygen Delivery Room Air 08/28/24 02:16 Temperature 98.4 F 08/28/24 02:16 Pulse Rate 79 08/28/24 04:25 Respiratory Rate 17 08/28/24 04:25 Blood Pressure 107/58 L 08/28/24 04:25 Pulse Oximetry 96 08/28/24 04:25 Oxygen Delivery Room Air 08/28/24 03:00 Discharge Plan Discharge Clinical Impression: Allergic reaction, Contact dermatitis and eczema Patient Disposition: Home, Self-Care Condition: Improved Instructions: Antibiotic Form, Contact Dermatitis (ED), Eczema (ED) Additional Instructions: Please follow-up with your family doctor within the next 3-5 days. Return to the emergency department if any new or worsening symptoms develop. Use the prescribed steroids as instructed. Prescriptions: New methylprednisolone [Medrol (Ozzy)] 4 mg tablets,dose pack See Rx Instructions .ROUTE .COMPLEX Qty: 21 0RF Rx Instructions: orally per package directions No Action (DME) Dexcom G6 Subcontract Administrator Misc See Rx Instructions .ROUTE .MEDSUPPLY Qty: 1 0RF Rx Instructions: As directed albuterol sulfate 90 mcg/actuation HFA aerosol inhaler See Rx Instructions .ROUTE .COMPLEX Qty: 17 4RF Dose Instruction: USE 1 INHALATION EVERY 4 HOURS Rx Instructions: USE 1 INHALATION EVERY 4 HOURS aspirin [Adult Aspirin Regimen] 81 mg Tablet,Delayed Release (Dr/Ec) 81 mg PO DAILY Hold Instructions: Resume on 03/11/24. tramadol 50 mg tablet 50 mg PO Q6H PRN (Reason: pain) Qty: 20 0RF naproxen 500 mg tablet 500 mg PO BID 5 Days Qty: 10 0RF (DME) pen needle, diabetic [CareFine Pen Needle] 32 gauge x 3/16 needle See Rx Instructions .ROUTE .MEDSUPPLY Qty: 100 3RF Rx Instructions: q day lisinopril 2.5 mg tablet See Rx Instructions .ROUTE .COMPLEX Qty: 90 1RF Dose Instruction: TAKE 1 TABLET DAILY Rx Instructions: TAKE 1 TABLET DAILY pen needle, diabetic [BD Ultra-Fine Rufina Pen Needle] 32 gauge x 5/32 needle See Rx Instructions .ROUTE .COMPLEX Qty: 100 5RF Dose Instruction: USE DIRECTED Rx Instructions: Use with Tresiba venlafaxine 37.5 mg capsule,extended release 24hr See Rx Instructions .ROUTE .COMPLEX Qty: 90 1RF Dose Instruction: TAKE 1 CAPSULE DAILY Rx Instructions: TAKE 1 CAPSULE DAILY Jardiance 25 mg tablet See Rx Instructions .ROUTE .COMPLEX Qty: 90 1RF Dose Instruction: TAKE 1 TABLET DAILY Rx Instructions: TAKE 1 TABLET DAILY metformin 500 mg tablet extended release 24 hr 1,000 mg PO BID Qty: 360 1RF Tresiba FlexTouch U-100 100 unit/mL (3 mL) insulin pen 18 unit .ROUTE Q24H Qty: 15 1RF Rx Instructions: 18 units every 24 hours; (DME) Dexcom G6 Sensor Device See Rx Instructions .ROUTE .COMPLEX Qty: 9 3RF Dose Instruction: USE DIRECTED. CHANGE EVERY 10 DAYS Rx Instructions: USE DIRECTED. CHANGE EVERY 10 DAYS (DME) Dexcom G6 Transmitter Device See Rx Instructions .ROUTE .MEDSUPPLY Qty: 2 2RF Rx Instructions: As directed Trelegy Ellipta 100-62.5-25 mcg blister with device 1 inh inhalation DAILY Qty: 120 1RF Follow-up/Referrals: Claudette Figueroa MD [Primary Care Provider] - 3 Days Time of Disposition: 04:14
[2024-08-28 03:00] VITALS: O2SAT 90
[2024-08-28 03:51] VITALS: PULSE 80; RESP 17
[2024-08-28] MEDS: IPRATROPIUM 0.5 MG/ALBUTEROL SULFATE 2.5 MG AMPUL.NEB 3 ML INHALATION (03:51)
[2024-08-28 04:25] VITALS: BP 107/58; BP 107/78; PULSE 79; PULSE 80; RESP 15; RESP 17; O2SAT 92; O2SAT 96
== END 2024-08-28 04:25 | disposition home or self-care (01) ==
PROVIDERS: Emergency Provider Emergency Medicine; PCP Family Medicine
DX: L23.9 Allergic contact dermatitis, unspecified cause (principal); J44.9 Chronic obstructive pulmonary disease, unspecified; J45.909 Unspecified asthma, uncomplicated; E11.9 Type 2 diabetes mellitus without complications; Z86.718 Personal history of other venous thrombosis and embolism; Z79.82 Long term (current) use of aspirin; K21.9 Gastro-esophageal reflux disease without esophagitis; Z79.4 Long term (current) use of insulin; E78.2 Mixed hyperlipidemia; Z87.891 Personal history of nicotine dependence
CPT/HCPCS: 94640; 96374; 96375; 99284; J1200; J2919

== ENCOUNTER 2024-09-04 07:47 | Emergency (ER) | payer BC, SELFPAY ==
--- NOTE | ~2024-09-04 | XR_ITS ---
EXAMINATION: XR chest 2V 09/04/2024 08:56 INDICATION: Syncope. Weakness and dizziness. PROCEDURE: 2 view chest COMPARISON: No prior studies for comparison. FINDINGS: The lungs are clear. The cardiomediastinal silhouette is within normal limits. There are no pleural effusions. There is no pneumothorax suspected. IMPRESSION: 1: NO ACUTE CARDIOPULMONARY DISEASE. Reviewed, dictated and finalized at location B. DOCUMENTATION
--- NOTE | 2024-09-04 08:11 | ECG_ITS ---
Test Date: 2024-09-04 08:00:20 Measurements Intervals [place] Rate: 92 P: 70 [place]: 112 QRS: 66 QRSD: 83 T: 60 QT: 336 QTc: 416 Interpretive Statements SINUS RHYTHM WITH SHORT [place] INTERVAL POSSIBLE LEFT ATRIAL ENLARGEMENT BASELINE ARTIFACT- I, III, AVL, V1-V3 BORDERLINE ECG No previous ECG available for comparison Electronically Signed On 09-04-2024 08:22:50 ONCOLOGIST by Sebastian Whitaker D.O.
[2024-09-04 08:12] VITALS: BP 105/64; PULSE 92; RESP 24; TEMP 37.1; O2SAT 98
[2024-09-04 08:17] VITALS: PULSE 92
--- NOTE | 2024-09-04 08:28 | ED_ITS ---
HPI - Syncope General Chief Complaint: Syncope Stated Complaint: rash, chills Time Seen by Provider: 09/04/24 08:06 History of Present Illness HPI narrative: 59-year-old female presenting to the emergency department chief complaint of ongoing rash and having a syncopal episode today. She has been on multiple rounds of steroids these past week or so including Medrol Dosepak, dexamethasone injections, prednisone taper. She states that her rash is starting clear but now starting to have some sloughing of the skin and decreased redness. She states today while she got up suddenly from bed no of the bathroom she felt lightheaded and nauseous and passed out. She states she is not clear if she actually did lose consciousness fully but she was able to get up off the ground without any her head. Does not take any blood thinner medications have no seizure history. Family member present at bedside states that he did not witness the event but heard the event and noticed that she was slightly hypotensive after taking her blood pressure his blood pressure cuff shortly thereafter. He took her to the hospital for evaluation. She overall appears well at this time states that she does not have any headache or injury. States that her rash is improving denies any vision changes, nausea, vomiting, abdominal pain, back pain, fever, chills at this time. She states she did feel some chills and nauseousness earlier purposes slowly subsiding. Related Data Home Medications Medication Instructions Recorded Confirmed aspirin 81 mg tablet,delayed 81 mg PO DAILY 08/09/19 08/29/24 release (Adult Aspirin Regimen) albuterol sulfate 90 mcg/actuation See Rx Instructions .Route 08/29/24 08/29/24 aerosol inhaler .COMPLEX PRN Allergies Allergy/AdvReac Type Severity Reaction Status Date / Time hydrocodone Allergy Mild unknown Verified 08/29/24 14:02 exenatide [From Bydureon] Allergy Unknown Verified 08/29/24 14:02 poison sia extract Allergy Rash Verified 08/29/24 14:02 Review of Systems Review of Systems: As reviewed above in HPI [facility] Past Medical History Medical History Acute respiratory failure with hypoxia Asthma CAP (community acquired pneumonia) 08/09/2019 Cigarette smoker Colon cancer screening COPD (chronic obstructive pulmonary disease) Diabetes mellitus Diverticulosis DVT of popliteal vein Eczema of lower leg bilateral feet Gastroesophageal reflux Hematuria Irritable bowel syndrome with mixed bowel habits Migraine, unspecified, not intractable, without status migrainosus Mixed hyperlipidemia Oral candidiasis Type 2 diabetes mellitus treated with insulin Hemoglobin A1c February 2020 6.8 Surgical History Surgical History Congenital cataract resection Ganglion cyst of dorsum of left wrist History of endometrial ablation (~2005) Hx of tonsillectomy Family History Family History Grandparent Diabetes mellitus Hyperlipidemia Mother , of malignant hyperthermia as a side effect of ane sthesia Diabetes mellitus CHF (congestive heart failure) Peripheral vascular disease Chronic cutaneous venous stasis ulcer Sibling Diabetes mellitus sister Peripheral artery disease brother Father , premature coronary artery disease Acute myocardial infarction Malignant neoplasm of prostate Hyperlipidemia Heart disease Pulmonary embolism Cerebrovascular accident Social History Social History Social History: Caffeine-daily Smoking packs per day: 1 Smoking cigarettes per day: 20.0 Years smoked: 40 Smoking pack-years: 40.00 Smoking status: Current every day smoker Tobacco type: cigarettes Second hand tobacco smoke exposure: Yes Alcohol intake: current Drinks per week: 3 Alcohol use details: She drinks between 2-3 alcoholic beverages a week. Substance use: never Substance use type: does not use Living arrangements: with family Additional living arrangements comments: She lives in [place] with her of 37 years. She has 2 adult children. She has 3 grand children. 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 Gender identity (if verbalized by the patient): Female Spiritual care concerns: No Exam Narrative: GENERAL: [Well-appearing, well-nourished, and in no acute distress.] HEAD: [Normocephalic, atraumatic.] EYES: [PERRLA and EOMI.] ENT: Nares clear, no rhinorrhea or epistaxis. Mucous membranes moist. NECK: Supple. CHEST: [Clear to auscultation. No respiratory distress.] HEART: [Regular rate and rhythm]. No murmur heard. [Normal peripheral pulses.] ABDOMEN: [Soft, nondistended], [nontender], [No rigidity or guarding] EXTREMITIES: Normal range of motion. [No edema.] SKIN: Somewhat reticular appearing rash in the bilateral upper and lower extremities that is blanching with palpation, along the left elbow there is an area of skin peeling without any tenderness. No rash involvement of the face or abdomen NEURO: [No focal deficits]. Alert and oriented [x3.] PSYCH: [Normal mood and affect.] Course Vital Signs Vital signs: Vital Signs Temperature 37.1 C 09/04/24 08:12 Pulse Rate 92 09/04/24 08:12 Respiratory Rate 24 H 09/04/24 08:12 Blood Pressure 105/64 09/04/24 08:12 Pulse Oximetry 98 09/04/24 08:12 Oxygen Delivery Room Air 09/04/24 08:12 Temperature 37.1 C 09/04/24 08:12 Pulse Rate 100 09/04/24 09:28 Respiratory Rate 17 09/04/24 09:28 Blood Pressure 112/72 09/04/24 09:28 Pulse Oximetry 99 09/04/24 09:28 Oxygen Delivery Room Air 09/04/24 08:12 MDM - Syncope MDM Narrative Medical decision making narrative: 59-year-old female presenting to the emergency department after a syncopal episode. She has been dealing with a rash that her primary doctor and previous ER physician things could be secondary to an allergic reaction. She has been several rounds of steroids including dexamethasone injections, Medrol Dosepak and now starting a prednisone taper which she is on day 6 of. She had some prodromal symptoms prior to her syncope/presyncope today while she got up out of bed. She felt flushed, lightheaded, nauseous and chills and then felt like she might have passed out briefly but did not hit her head. No blood thinner use or seizure disorder. Overall does sound more likely benign etiology but her age and risk factors do raise her at higher risk for potential cardiac process although less likely, most likely is vasovagal or orthostatic in nature. Her recent multiple rounds of steroids do place her at high risk for some adrenal complications that could also manifesting as a brief syncopal episode specially that she had some low blood pressure readings at home after the syncopal event and is slightly low on the blood pressure here 105/64. No tachycardia, fever, hypoxia. Blood work was obtained including a EKG, chest x-ray, CBC, CMP. She was given a fluid bolus at this time. Laboratory study revealed a leukocytosis of 17.9 but likely secondary to the high doses of steroids that she has been on it she has no infective symptoms. Normal hemoglobin, normal platelets. Electrolyte panel within normal limits, normal renal function panel. No signs of dehydration. Urine does show evidence of urinary tract infection with leukocyte esterase, bacteria and white cells. Patient did states she had some minor burning after I told her about the urine infection. Chest x-ray without any acute cardiopulmonary process per Radiology interpretation. EKG was nonischemic with normal sinus rhythm and unremarkable for any kind of ectopy or dysrhythmia. I discussed the results with the patient and our plan going forward which will be to treat her for urinary tract infection at this time and have follow-up with her primary care provider for continued evaluation of her rash and to continue her prednisone therapy until completion. She had normal reassuring vital signs here in the emergency department in stable for discharge home at this time. She will be given a prescription for Keflex. Medical Records Attestation: I reviewed the patient's medical records. Lab Data Attestation: I reviewed the patient's lab results. 09/04/24 08:21 09/04/24 08:21 Labs: Lab Results 09/04/24 Range/Units 08:21 WBC 17.9 H (4.5-10.0) K/mm3 RBC 5.73 H (4.2-5.4) M/mm3 Hgb 16.1 H (12.0-15.0) g/dL Hct 49.6 H (37.0-47.0) % MCV 86.6 (80-100) fl MCH 28.1 (26-34) pg MCHC 32.5 (32-36) g/dl RDW 15.3 H (11.5-14.5) % Plt Count 336 (150-375) k/mm3 MPV 9.2 (7.4-10.4) fl Immature Gran % (Auto) 1.3 H (0-0.5) % Neut % (Auto) 75.0 H (45.5-73.1) % Lymph % (Auto) 16.7 L (18.3-44.2) % [place] % (Auto) 2.6 (2.6-8.5) % Eos % (Auto) 4.1 (0-4.4) % Baso % (Auto) 0.3 (0.2-1.2) % Lymph # (Auto) 3.00 (0.9-3.2) K/mm3 [place] # (Auto) 0.5 (0.1-0.6) K/mm3 Eos # (Auto) 0.7 H (0-0.3) K/mm3 Baso # (Auto) 0.1 (0.0-0.1) K/mm3 Abs Immat Gran (auto) 0.23 H (0.00-0.031) K/mm3 Absolute Neuts (auto) 13.4 H (1.3-6.7) K/mm3 Absolute Nucleated RBC 0.000 (0.0-0.012) K/mm3 Nucleated RBC % 0.0 (0.0-0.2) % Sodium 135 L (137-145) mmol/L Potassium 4.1 (3.4-5.0) mmol/L Chloride 103 (98-107) mmol/L Carbon Dioxide 27 (22-30) mmol/L Anion Gap 5 (4-12) mmol/L BUN 21 H (7-17) mg/dL Creatinine 0.70 (0.7-1.0) mg/dL Estim Creat Clear Calc 77 ml/min Estimated GFR > 60 (59 - ) Glucose 149 H (65-110) mg/dL Calcium 8.7 (8.4-10.2) mg/dL Total Bilirubin 0.7 (0.2-1.3) mg/dL AST 16 (14-36) U/L ALT 14 (6-35) U/L Alkaline Phosphatase 88 (38-126) U/L Total Protein 7.0 (6.3-8.2) g/dL Albumin 3.8 (3.5-5.1) g/dL Urine Color Yellow (Yellow) Urine Appearance Clear (Clear) Urine pH 5.5 (5.0-9.0) Ur Specific [place] 1.027 (1.001-1.035) Urine Protein Negative (Negative) mg/dL Urine Glucose (UA) 3+ H (Negative) mg/dL Urine Ketones Negative (Negative) mg/dL Ur Blood (Man) Negative (Negative) Urine Nitrate Positive H (Negative) Urine Bilirubin Negative (Negative) Urine Urobilinogen 0.2 (<2.0) mg/dL Leukocyte Esterase Rfl Trace H (Negative) GUANAKO/UL Urine RBC 0-2 (0-2) /hpf Urine WBC 21-50 H (0-3) /hpf Ur Squamous Epith Cells Few (Few) /hpf Urine Bacteria 4+ H /hpf Urine Casts 0-2 Imaging Data Attestation: I personally reviewed and interpreted this imaging study as follows: My impression: Impressions Chest X-Ray 09/04/24 08:59 IMPRESSION: 1: NO ACUTE CARDIOPULMONARY DISEASE. Discharge Plan Discharge Clinical Impression: UTI (urinary tract infection), Syncope due to orthostatic hypotension Patient Disposition: Home, Self-Care Condition: Stable Instructions: Antibiotic Form, Urinary Tract Infection in Women (DC), Syncope (DC) Additional Instructions: We will send you home with Keflex for urinary tract infection. Please continue taking her prednisone until completion per your primary care provider's instructions. Follow-up with them about your rash any could also mentioned your visit here to the ER for a syncope episode. Return if you have any persistent or new concerns. Prescriptions: New cephalexin 500 mg capsule 500 mg PO Q12H 5 Days Qty: 10 0RF No Action albuterol sulfate 90 mcg/actuation HFA aerosol inhaler See Rx Instructions .ROUTE .COMPLEX PRN Dose Instruction: USE 1 INHALATION EVERY 4 HOURS Rx Instructions: USE 1 INHALATION EVERY 4 HOURS PRN; prednisone 10 mg tablet 10 mg PO DIRECTED Qty: 30 0RF Rx Instructions: take 4 tablets for 3 days, 3 tablets for 3 days, 2 tablet for 3 days, 1 tablet for 3 days. clobetasol 0.05 % cream 1 applic topical BID PRN (Reason: itching) Qty: 45 2RF aspirin [Adult Aspirin Regimen] 81 mg Tablet,Delayed Release (Dr/Ec) 81 mg PO DAILY Hold Instructions: Resume on 03/11/24. (DME) pen needle, diabetic [CareFine Pen Needle] 32 gauge x 3/16 needle See Rx Instructions .ROUTE .MEDSUPPLY Qty: 100 3RF Rx Instructions: q day lisinopril 2.5 mg tablet See Rx Instructions .ROUTE .COMPLEX Qty: 90 1RF Dose Instruction: TAKE 1 TABLET DAILY Rx Instructions: TAKE 1 TABLET DAILY pen needle, diabetic [BD Ultra-Fine Rufina Pen Needle] 32 gauge x 5/32 needle See Rx Instructions .ROUTE .COMPLEX Qty: 100 5RF Dose Instruction: USE DIRECTED Rx Instructions: Use with Tresiba venlafaxine 37.5 mg capsule,extended release 24hr See Rx Instructions .ROUTE .COMPLEX Qty: 90 1RF Dose Instruction: TAKE 1 CAPSULE DAILY Rx Instructions: TAKE 1 CAPSULE DAILY Jardiance 25 mg tablet See Rx Instructions .ROUTE .COMPLEX Qty: 90 1RF Dose Instruction: TAKE 1 TABLET DAILY Rx Instructions: TAKE 1 TABLET DAILY metformin 500 mg tablet extended release 24 hr 1,000 mg PO BID Qty: 360 1RF Tresiba FlexTouch U-100 100 unit/mL (3 mL) insulin pen 18 unit .ROUTE Q24H Qty: 15 1RF Rx Instructions: 18 units every 24 hours; Trelegy Ellipta 100-62.5-25 mcg blister with device 1 inh inhalation DAILY Qty: 120 1RF Follow-up/Referrals: Claudette Figueroa MD [Primary Care Provider] - Time of Disposition: 10:20
[2024-09-04 08:31] LABS: Basophils Absolute Auto 0.1 K/mm3 (0.0-0.1); Basophils Percent Auto 0.3 % (0.2-1.2); Eosinophils Absolute Auto 0.7 K/mm3 (0-0.3); Eosinophils Percent Auto 4.1 % (0-4.4); Hematocrit 49.6 % (37.0-47.0); Hemoglobin 16.1 g/dL (12.0-15.0); Immature Granulocyte Absolute 0.23 K/mm3 (0.00-0.031); Immature Granulocyte Percent A 1.3 % (0-0.5); Lymphocytes Percent Auto 16.7 % (18.3-44.2); Mean Corpuscular HGB Conc 32.5 g/dl (32-36); Mean Corpuscular Hemoglobin 28.1 pg (26-34); Mean Corpuscular Volume 86.6 fl (80-100); Mean Platelet Volume 9.2 fl (7.4-10.4); Monocytes Absolute Auto 0.5 K/mm3 (0.1-0.6); Monocytes Percent Auto 2.6 % (2.6-8.5); Neutrophils Absolute Auto 13.4 K/mm3 (1.3-6.7); Platelet Count Result 336 k/mm3 (150-375); Red Blood Count 5.73 M/mm3 (4.2-5.4); Red Cell Distribution Width 15.3 % (11.5-14.5); White Blood Count 17.9 K/mm3 (4.5-10.0)
[2024-09-04] MEDS: LACTATED RINGERS 1,000 ML 999 ML IV CONT (08:32)
[2024-09-04 08:36] LABS: Add Urine Microscopic? YES; Appearance Urine Clear (Clear); Bacteria Urine 4+ /hpf; Bilirubin Urine Negative (Negative); Blood Urine Negative (Negative); Color Urine Yellow (Yellow); Glucose Urine UA 3+ mg/dL (Negative); Ketones Urine Negative (Negative); Leukocyte Esterase Ur Trace LEU/UL (Negative); Nitrate Urine Positive (Negative); Non Pathogenic Casts 0-2; Protein Urine Negative (Negative); RBC Urine 0-2 /hpf (0-2); Specific Grav Ur 1.027 (1.001-1.035); Squamous Epithelial Cell Urine Few /hpf (Few); Urobilinogen Urine 0.2 mg/dL (<2.0); WBC Urine 21-50 /hpf (0-3); pH Urine 5.5 (5.0-9.0)
[2024-09-04 08:44] LABS: Alanine Aminotransferase 14 U/L (6-35); Albumin Level 3.8 g/dL (3.5-5.1); Alkaline Phosphatase 88 U/L (38-126); Anion Gap 5 mmol/L (4-12); Aspartate Amino Transferase 16 U/L (14-36); Bilirubin,Total 0.7 mg/dL (0.2-1.3); Blood Urea Nitrogen 21 mg/dL (7-17); Calcium 8.7 mg/dL (8.4-10.2); Carbon Dioxide 27 mmol/L (22-30); Chloride 103 mmol/L (98-107); Estimated CRCL calculation 77 ml/min; Estimated Glomerular Filt Rate > 60; Glucose 149 mg/dL (65-110); Potassium 4.1 mmol/L (3.4-5.0); Sodium 135 mmol/L (137-145)
[2024-09-04 09:28] VITALS: BP 112/72; PULSE 100; RESP 17; O2SAT 99
[2024-09-04 10:37] VITALS: BP 105/61; PULSE 102; RESP 17; O2SAT 96
== END 2024-09-04 10:38 | disposition home or self-care (01) ==
PROVIDERS: Emergency Provider Student in an Organized Health Care Education/Training Program; PCP Family Medicine
DX: I95.1 Orthostatic hypotension (principal); N39.0 Urinary tract infection, site not specified; Z79.82 Long term (current) use of aspirin; Z79.899 Other long term (current) drug therapy; Z79.84 Long term (current) use of oral hypoglycemic drugs; R94.31 Abnormal electrocardiogram [ECG] [EKG]
CPT/HCPCS: 36415; 71046; 80053; 81001; 85025; 87077; 87086; 87147; 87186; 93005; 96360; 99284; J7120

== ENCOUNTER 2024-09-12 10:50 | Outpatient (CLI) | payer BC, SELFPAY ==
[2024-09-12 12:50] LABS: Alanine Aminotransferase 25 U/L (6-35); Albumin Level 3.9 g/dL (3.5-5.1); Alkaline Phosphatase 110 U/L (38-126); Anion Gap 5 mmol/L (4-12); Aspartate Amino Transferase 47 U/L (14-36); Bilirubin,Total 0.6 mg/dL (0.2-1.3); Blood Urea Nitrogen 21 mg/dL (7-17); Carbon Dioxide 27 mmol/L (22-30); Chloride 105 mmol/L (98-107); Cholesterol 227 mg/dL (0-200); Estimated Glomerular Filt Rate > 60; Glucose 190 mg/dL (65-110); HDL Direct 44 mg/dL; Potassium 4.4 mmol/L (3.4-5.0); Sodium 137 mmol/L (137-145); Triglycerides 288 mg/dL (<150)
[2024-09-12 13:01] LABS: LDL Cholesterol Direct 134 mg/dL
[2024-09-12 13:06] LABS: Rheumatoid Factor 20.2 IU/ML (<12)
[2024-09-12 14:25] LABS: Basophils Absolute Auto 0.1 K/mm3 (0.0-0.1); Basophils Percent Auto 0.4 % (0.2-1.2); Eosinophils Absolute Auto 1.4 K/mm3 (0-0.3); Eosinophils Percent Auto 6.5 % (0-4.4); Hematocrit 50.1 % (37.0-47.0); Hemoglobin 16.2 g/dL (12.0-15.0); Immature Granulocyte Absolute 0.47 K/mm3 (0.00-0.031); Immature Granulocyte Percent A 2.1 % (0-0.5); Lymphocytes Absolute Auto 4.56 K/mm3 (0.9-3.2); Lymphocytes Percent Auto 20.7 % (18.3-44.2); Mean Corpuscular HGB Conc 32.3 g/dl (32-36); Mean Corpuscular Hemoglobin 28.2 pg (26-34); Mean Corpuscular Volume 87.3 fl (80-100); Mean Platelet Volume 9.2 fl (7.4-10.4); Monocytes Absolute Auto 0.9 K/mm3 (0.1-0.6); Monocytes Percent Auto 4.1 % (2.6-8.5); Neutrophils Absolute Auto 14.6 K/mm3 (1.3-6.7); Neutrophils Percent Auto 66.2 % (45.5-73.1); Platelet Count Result 505 k/mm3 (150-375); Red Blood Count 5.74 M/mm3 (4.2-5.4); Red Cell Distribution Width 15.5 % (11.5-14.5)
[2024-09-13 00:32] LABS: Hemoglobin A1C 8.4 % (<5.7)
[2024-09-14 04:34] LABS: ANA Cascade Screen NEGATIVE (NEGATIVE)
== END 2024-09-12 10:51 | disposition home or self-care (01) ==
LOC: ANHGOSHLAB 10:52
PROVIDERS: PCP Family Medicine; Visit Provider Family Medicine
DX: M25.50 Pain in unspecified joint (principal); E11.65 Type 2 diabetes mellitus with hyperglycemia; E78.2 Mixed hyperlipidemia; Z79.4 Long term (current) use of insulin
CPT/HCPCS: 36415; 80053; 80061; 83036; 85025; 86038; 86225; 86235; 86364; 86430

== ENCOUNTER 2024-10-29 13:27 | Outpatient (CLI) | payer BC, SELFPAY ==
--- NOTE | 2024-10-29 13:57 | ECHO_ITS ---
Patient Info Name: Sol Rosas Age: 59 years : 1965 Gender: Female Ht: 64 in Wt: 163 lbs BSA: 1.85 m2 HR: 90 bpm BP: 113 / 74 mmHg Heart Rhythm: Sinus Rhythm Technical Quality: Fair Exam Date: 10/29/2024 2:03 PM Exam Location: Echo Lab Patient Status: Outpatient Admit Date: 10/29/2024 Staff Ordering Physician: Claudette Figueroa MD Front End Web Developer: Lydia Ríos RDCS Attending Provider: Claudette Figueroa MD Referring Physician: Henry ALICEA; Exam Type: CA echo doppler color flow Study Info Indications - phtn Complete two-dimensional, color flow and Doppler transthoracic echocardiogram is performed. Summary 1. Complete two-dimensional, color flow and Doppler transthoracic echocardiogram is performed. 2. Left ventricular chamber dimension is normal. 3. Left ventricular systolic function is normal, estimated at 65-70%. 4. The left ventricular diastolic function is grade I diastolic dysfunction. 5. E/e' 7 is not elevated. 6. There is mild aortic valve sclerosis. Left Ventricle E/e' 7 is not elevated. Left ventricular chamber dimension is normal. Left ventricular systolic function is normal, estimated at 65-70%. The left ventricular diastolic function is grade I diastolic dysfunction. Right Ventricle Right ventricular systolic function is normal and with normal TAPSE 2.0 cm. Right ventricular chamber dimension is normal. Left Atria Left atrial chamber dimension is normal. Right Atria Right atrial chamber dimension is normal. Aortic Valve The aortic valve is trileaflet. There is mild aortic valve sclerosis. There is no aortic valve stenosis. There is no aortic valve regurgitation. Pulmonic Valve There is no pulmonic regurgitation. Mitral Valve There is no mitral valve stenosis. There is no mitral valve regurgitation. Tricuspid Valve There is no tricuspid valve regurgitation. Pericardium/Pleural There is no pericardial effusion. Inferior Vena Cava Normal inferior vena cava with >50% collapse upon inspiration consistent with normal right atrial pressure, 5 mmHg. Aorta The aortic root size at the sinus of Valsalva is normal. Left Ventricular Outflow Tract Name Value Normal LVOT 2D LVOT Diameter 2.0 cm LVOT Doppler LVOT Peak Gradient 4 mmHg LVOT Mean Gradient 2 mmHg LVOT VTI 15 cm LVOT VTI/AV VTI Ratio 0.6 LVOT Stroke Volume 47 ml LVOT CO 3.9 l/min LVOT CI 2.1 l/min/m2 Pulmonic Valve Name Value Normal RVOT Doppler RVOT Peak Gradient 3 mmHg PV Doppler PV Peak Gradient 4 mmHg Mitral Valve Name Value Normal MV Doppler MV Decel R[place] 218 cm/s2 MV PHT 88 ms MV Area (PHT) 2.5 cm2 4.0-5.0 MV Diastolic Function MV E Peak Velocity 66 cm/s MV A Peak Velocity 80 cm/s MV E/A 0.8 MV Decel Time 303 ms MV Annular TDI MV E/e' (Septal) 7.8 <=8.0 MV E/e' (Lateral) 6.7 <=8.0 MV E/e' (Average) 7.3 Tricuspid Valve Name Value Normal Estimated PAP/RSVP RA Pressure 5 mmHg <=5 Aorta Name Value Normal Ascending Aorta Ao Root Diameter (MM) 2.8 cm Ao Root Diam Index (MM) 1.5 cm/m2 Aortic Valve Name Value Normal AV Doppler AV Peak Velocity 155 cm/s AV Peak Gradient 10 mmHg AV Mean Gradient 5 mmHg AV VTI 25 cm AV Area (Cont Eq VTI) 1.9 cm2 >=3.0 AV Area (Cont Eq Andrés) 2.0 cm2 AV Regurgitation 2D LVOT Area 3.0 cm2 Ventricles Name Value Normal LV Dimensions 2D/MM IVS Diastolic Thickness (2D) 0.7 cm 0.6-1.0 LVID Diastole (2D) 5.2 cm 3.8-5.2 LVIW Diastolic Thickness (2D) 0.7 cm 0.6-0.9 LVID Systole (2D) 3.4 cm 2.2-3.5 LVOT Diameter 2.0 cm LV Mass (2D Cubed) 129.72 g 67.00-162.00 LV Mass Index (2D Cubed) 70 g/m2 43-95 Relative Wall Thickness (2D) 0.28 LV Fractional Shortening/Ejection Fraction 2D/MM LV Fractional Shortening (2D) 35 % 27-45 LV EF (2D Teichcitlalyz) 63 % 54-74 LV Diastolic Volume (4C MOD) 34 ml LV EF (4C MOD) 68 % LV Diastolic Volume (2C MOD) 43 ml LV EF (2C MOD) 73 % LV Diastolic Volume (BP MOD) 40 ml 46-106 LV Diastolic Volume Index (BP MOD) 22 ml/m2 29-61 LV Systolic Volume (BP MOD) 11 ml 14-42 LV Systolic Volume Index (BP MOD) 6 ml/m2 8-24 LV EF (BP MOD) 71 % 54-74 LV Diastolic Length (4C) 6.5 cm LV Systolic Length (4C) 4.8 cm LV Stroke Volume (4C MOD) 23 ml Atria Name Value Normal LA Dimensions LA Dimension (MM) 3.5 cm 2.7-3.8 LA Volume (4C A-L) 20 ml LA Volume (BP A-L) 18 ml RA Dimensions RA Area (4C) 11.9 cm2 <=18.0 Report Signatures
== END 2024-10-29 13:28 | disposition home or self-care (01) ==
PROVIDERS: PCP Family Medicine; Visit Provider Family Medicine
DX: I35.8 Other nonrheumatic aortic valve disorders (principal); I27.20 Pulmonary hypertension, unspecified
CPT/HCPCS: 93306

== ENCOUNTER 2025-03-10 15:04 | Emergency (ER) | payer BC, SELFPAY ==
[2025-03-10 15:35] VITALS: BP 109/66; PULSE 96; RESP 20; TEMP 36.6; O2SAT 92
--- NOTE | 2025-03-10 15:41 | ED_ITS ---
HPI - URI/Sore Throat General Chief Complaint: Upper Respiratory Infection Stated Complaint: URI Symptoms possible UTI Time Seen by Provider: 03/10/25 15:42 Source: patient, RN notes reviewed and old records reviewed Mode of arrival: ambulatory Limitations: no limitations History of Present Illness HPI Narrative: 59-year-old female presents to the [facility] with 1 week history of cough, congestion, productive cough, wheezing. Has tried multiple [id number] products. Patient reports that last Tuesday she was outside all day, woke up Tuesday with a bad cough. Patient is currently a smoker. Patient with concerns also for a UTI. Reports that Tuesday 1 week ago, 8 or 9 days ago started with some frequency, pain in the lower back which then moved to her groin area. States the pain has been gone since last weekend but wanted to make sure she does not have an infection. Denies any abdominal pain, chest pain, shortness of breath. Denies any fevers. Patient is a smoker. Onset (ago): week(s) (1) Treatments prior to arrival: cold medicine Related Data Home Medications ?Medication ?Instructions ?Recorded ?Confirmed ?Last Taken ?Type aspirin 81 mg tablet,delayed 81 mg PO DAILY 08/09/19 11/13/24 07/09/20 History release (Adult Aspirin Regimen) albuterol sulfate 90 mcg/actuation See Rx Instructions .Route 08/29/24 11/13/24 Unknown History aerosol inhaler .COMPLEX PRN cetirizine 10 mg tablet (Zyrtec) 10 mg PO DAILY PRN allergy symptoms 09/26/24 03/10/25 Unknown History Allergies Allergy/AdvReac Type Severity Reaction Status Date / Time lisinopril Allergy Severe Rash Verified 03/10/25 15:41 hydrocodone Allergy Mild unknown Verified 03/10/25 15:41 exenatide (From Bydureon) Allergy Unknown Verified 03/10/25 15:41 poison sia extract Allergy Rash Verified 03/10/25 15:41 Review of Systems Review of Systems: All systems reviewed & are unremarkable except as noted in HPI and below Constitutional: Constitutional: Reports no additional constitutional complaints ENT: Reports system reviewed and no additional complaints, except as documented Cardiovascular: Cardiovascular: Reports no additional cardiovascular complaints, Denies chest pain and Denies dyspnea Respiratory: Respiratory: Reports as per HPI, Reports chest congestion, Reports cough, Reports dyspnea and Reports wheezing Genitourinary: Genitourinary: Reports as per HPI Musculoskeletal: Musculoskeletal: Reports no additional musculoskeletal complaints Integumentary/Breasts: Skin/Breast: Reports system reviewed and no additional complaints, except as docu [facility] Past Medical History Medical History COPD (chronic obstructive pulmonary disease) Asthma Diabetes mellitus Acute respiratory failure with hypoxia Eczema of lower leg bilateral feet Oral candidiasis Type 2 diabetes mellitus treated with insulin Hemoglobin A1c February 2020 6.8 Irritable bowel syndrome with mixed bowel habits Migraine, unspecified, not intractable, without status migrainosus Diverticulosis Mixed hyperlipidemia Hematuria Gastroesophageal reflux Cigarette smoker DVT of popliteal vein CAP (community acquired pneumonia) 08/09/2019 Surgical History Surgical History Congenital cataract resection Ganglion cyst of dorsum of left wrist Hx of tonsillectomy History of endometrial ablation (~2005) Family History Family History Grandparent Diabetes mellitus Hyperlipidemia Mother , of malignant hyperthermia as a side effect of anesthesia Diabetes mellitus CHF (congestive heart failure) Peripheral vascular disease Chronic cutaneous venous stasis ulcer Sibling Diabetes mellitus sister Peripheral artery disease brother Father , premature coronary artery disease Acute myocardial infarction Malignant neoplasm of prostate Hyperlipidemia Heart disease Pulmonary embolism Cerebrovascular accident Social History Social History Social History: Caffeine-daily Smoking packs per day: 1 Smoking cigarettes per day: 20.0 Years smoked: 40 Smoking pack-years: 40.00 Smoking status: Current every day smoker Tobacco type: cigarettes Second hand tobacco smoke exposure: Yes Alcohol intake: current Drinks per week: 3 Alcohol use details: She drinks between 2-3 alcoholic beverages a week. Substance use: never Substance use type: does not use Do You Feel Safe in your Home?: Yes Living arrangements: with family Additional living arrangements comments: She lives in [place] with her of 37 years. She has 2 adult children. She has 3 grand children. 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 Gender identity (if verbalized by the patient): Female Spiritual care concerns: No Comments At the time of my signature, I reviewed and agree with the nursing past medical, surgical, social, and family history. There is no relevant family history pertinent to the patient complaint. Exam Const: General: cooperative, healthy appearing, comfortable, no acute distress, well developed, alert and well nourished Nutritional Appearance: well nourished Orientation/consciousness: patient oriented x3 Limitations: no limitations HENMT: Head: normal to inspection Ears: hearing grossly normal bilaterally, external ears normal, TM's normal bilaterally, EAC's normal, mastoids normal and no periauricular adenopathy Face and sinus: normal facial exam, sinuses nontender and face symmetric Mouth: Yes Normal oral and palatal mucosa present, Yes lip normal, Yes tongue normal and Yes moist mucous membranes Throat: posterior oropharynx normal, uvula midline, postnasal drainage and no uvular edema Eyes: General: appearance normal, both eyes and all related structures Alignment and Position: alignment normal Neck: Neck: normal visual inspection, full ROM, no lymphadenopathy and no meningeal signs Chest: Chest palpation & inspection: normal inspection of the chest Resp: Effort & Inspection: normal respiratory effort and able to speak in complete sentences Auscultation: no crackles, no rales, no rhonchi, wheezes and diminished lung sounds on the right in the lower lung haney Cardio: Rate: regular rate Skin: General skin exam: normal color and no rashes or lesions noted Neuro: General: patient oriented x3, gait normal, moves all extremities and no meningeal signs Cognition (Neuro): normal cognition Speech: normal speech Gait exam (Neuro): Normal gait present Extrem: General: normal to inspection, full ROM, capillary refill normal and normal gait Psych: Appearance: grossly normal and well kempt Mental Status: mental status grossly normal Speech and movement: Normal speech and movement present and Clear speech present Affect: normal affect Attitude: cooperative Course Course Level of Care: Express Care Visit Vital Signs Vital signs: Vital Signs Temperature 97.8 F 03/10/25 15:35 Pulse Rate 96 03/10/25 15:35 Respiratory Rate 20 03/10/25 15:35 Blood Pressure 109/66 03/10/25 15:35 Pulse Oximetry 92 03/10/25 15:35 Oxygen Delivery Room Air 03/10/25 15:35 Temperature 97.8 F 03/10/25 15:35 Pulse Rate 88 03/10/25 16:25 Respiratory Rate 20 03/10/25 16:25 Blood Pressure 109/66 03/10/25 15:35 Pulse Oximetry 94 03/10/25 16:25 Oxygen Delivery Room Air 03/10/25 15:35 Reviewed MDM - URI/Sore Throat MDM Narrative Medical decision making narrative: Patient sitting in exam room. Patient is nontoxic in appearance vitals are stable except oxygen level on the lower side of normal. Patient presents with cough, wheezing, chest congestion. Patient is a smoker. Unable to do a chest x-ray in clinic due to unavailability of x-ray. Nebulizer treatment given to patient well in clinic. Patient post treatment states that she is able to take a deep breath, wheezing except in the right lower lobe has cleared. Patient appropriate for outpatient treatment with strict guidelines to proceed to the emergency room and stressed the importance of following up with primary care provider Discussed stop smoking Discharge instructions reviewed with patient, as well as provided in writing per nursing staff. The instructions also include specific and strict return/GO TO THE ER as well as f/u information. All questions have been answered, and the patient deny any further questions with discharge and discharge plan. Some parts of this dictation were generated by voice recognition software and may contain typographical and/or grammatical inaccuracies. Differential Diagnosis Differential diagnosis: Likely upper respiratory infection, otitis media, sinu sitis, viral infection, bronchitis, influenza and pharyngitis Lab Data Labs: Lab Results 03/10/25 Range/Units 17:05 POC Urine Color Dark POC Urine Clarity Clear POC Urine pH 6.0 POC Ur Specif [place] 1.030 POC Urine Protein Negative (Negative) POC Ur Glucose (UA) Negative (Negative) POC Urine Ketones Trace (Negative) POC Urine Blood Negative (Negative) POC Urine Nitrite Negative (Negative) POC Urine Bilirubin Negative (Negative) POC Urine Urobilinogen 0.2 POC U Leukocyte Esteras Negative (Negative) Reviewed Critical Care Time Critical Care Time Critical Care Time: No Discharge Plan Discharge Clinical Impression: Nicotine dependence with current use, Bronchitis Patient Disposition: Home Condition: Stable Instructions: Antibiotic Form Patient Language: Azeri Prescriptions: No Action cetirizine [Zyrtec] 10 mg tablet 10 mg PO DAILY PRN (Reason: allergy symptoms) (DME) Dexcom G7 Sensor Device See Rx Instructions .Route Qty: 9 3RF Rx Instructions: As directed (DME) Dexcom G7 [facility] See Rx Instructions .Route Qty: 1 1RF Rx Instructions: As directed albuterol sulfate 90 mcg/actuation HFA aerosol inhaler See Rx Instructions .ROUTE .COMPLEX PRN Dose Instruction: USE 1 INHALATION EVERY 4 HOURS Rx Instructions: USE 1 INHALATION EVERY 4 HOURS PRN; aspirin [Adult Aspirin Regimen] 81 mg Tablet,Delayed Release (Dr/Ec) 81 mg PO DAILY (DME) pen needle, diabetic [CareFine Pen Needle] 32 gauge x 3/16 needle See Rx Instructions .ROUTE .MEDSUPPLY Qty: 100 3RF Rx Instructions: q day pen needle, diabetic [BD Ultra-Fine Rufina Pen Needle] 32 gauge x 5/32 needle See Rx Instructions .ROUTE .COMPLEX Qty: 100 5RF Dose Instruction: USE DIRECTED Rx Instructions: Use with Tresiba Tresiba FlexTouch U-100 100 unit/mL (3 mL) insulin pen 18 unit .ROUTE Q24H Qty: 15 1RF Rx Instructions: 18 units every 24 hours; venlafaxine 37.5 mg capsule,extended release 24hr See Rx Instructions .ROUTE .COMPLEX Qty: 90 1RF Dose Instruction: TAKE 1 CAPSULE DAILY Rx Instructions: TAKE 1 CAPSULE DAILY Jardiance 25 mg tablet See Rx Instructions .ROUTE .COMPLEX Qty: 90 1RF Dose Instruction: TAKE 1 TABLET DAILY Rx Instructions: TAKE 1 TABLET DAILY metformin 500 mg tablet extended release 24 hr 1,000 mg PO BID Qty: 360 1RF Trelegy Ellipta 100-62.5-25 mcg blister with device 1 inh inhalation DAILY Qty: 120 1RF Follow-up/Referrals: Claudette Figueroa MD [Primary Care Provider] -
[2025-03-10] MEDS: IPRATROPIUM 0.5 MG/ALBUTEROL SULFATE 2.5 MG AMPUL.NEB 3 ML INHALATION (16:00)
[2025-03-10 16:25] VITALS: PULSE 88; RESP 20; O2SAT 94
[2025-03-10 17:08] LABS: EDUAAPPEAR Clear; EDUABILI Negative (Negative); EDUABLOOD Negative (Negative); EDUACOLOR1 Dark; EDUAGLUCOSE Negative (Negative); EDUAKETONE Trace (Negative); EDUALEUKO Negative (Negative); EDUANITRATE Negative (Negative); EDUAPROTEIN Negative (Negative); EDUAUROBILI 0.2
== END 2025-03-10 16:40 | disposition home or self-care (01) ==
PROVIDERS: Emergency Provider Nurse Practitioner; PCP Family Medicine
DX: J40 Bronchitis, not specified as acute or chronic (principal); F17.210 Nicotine dependence, cigarettes, uncomplicated; J44.9 Chronic obstructive pulmonary disease, unspecified; E11.9 Type 2 diabetes mellitus without complications; Z79.84 Long term (current) use of oral hypoglycemic drugs; E78.2 Mixed hyperlipidemia; K21.9 Gastro-esophageal reflux disease without esophagitis; Z86.718 Personal history of other venous thrombosis and embolism; Z79.82 Long term (current) use of aspirin
CPT/HCPCS: 81003; 94640; 99213; G0463